=== PATIENT | female | born 1960 | race African-American/Black ===

== ENCOUNTER 2019-09-07 11:36 | Inpatient (IN) | payer OTHER ==
--- NOTE | 2019-09-07 12:25 | PDOC ---
History of Present Illness - General Chief Complaint: Shortness of Breath Stated Complaint: CHEST PAIN - History of Present Illness Initial Comments: The pt is a 59F w/ a history of cardiomyopathy, HTN, NIDDM who presents for evaluation of 2 days of shortness of breath. She states it started yesterday while at work, she noticed it while walking up a fight of stairs and had to stop. She also noted associated chest pressure. She does not typically have this happen with exertion. She notes chest pressure and SOB on exertion, that is non-positional. She endorses cough for the last two days. While laying at rest now, she does not have chest pressure/SOB Denies fevers/chills, abdominal pain, N/V/C/D, dysuria, edema, vision changes, ACUÑA, dizziness 09/07/19 12:48 Past History - Past Medical History Allergies/Adverse Reactions: Allergies Allergy/AdvReac Type Severity Reaction Status Date / Time No Known Allergies Allergy Verified 06/18/16 23:02 Home Medications: Ambulatory Orders Aspirin [ASA -] 81 mg PO DAILY 09/07/19 Carvedilol [Coreg -] 25 mg PO BID 09/07/19 Glimepiride [Amaryl -] 4 mg PO DAILY@0700 09/07/19 Losartan Potassium [Cozaar -] 25 mg PO DAILY 09/07/19 Metformin HCl [Glucophage] 500 mg PO BID 09/07/19 Sitagliptin Phosphate [Januvia] 100 mg PO DAILY 09/07/19 Spironolactone [Aldactone] 25 mg PO DAILY 09/07/19 Anemia: No Asthma: No Cancer: Yes (rt breast) Cardiac Disorders: Yes ("leaky valve") CVA: No COPD: No CHF: No Dementia: No Diabetes: Yes GI Disorders: No Disorders: No HTN: Yes Hypercholesterolemia: No Liver Disease: No Seizures: No Thyroid Disease: No - Surgical History Abdominal Surgery: No Appendectomy: No Cardiac Surgery: No Cholecystectomy: No Lung Surgery: No Neurologic Surgery: No Orthopedic Surgery: No - Psycho Social/Smoking Cessation Hx Smoking History: Never smoked Have you smoked in the past 12 months: No Number of Cigarettes Smoked Daily: 20 If you are a former smoker, when did you quit?: over 20 years Hx Alcohol Use: No Drug/Substance Use Hx: No Substance Use Type: None Hx Substance Use Treatment: No Review of Systems - Review of Systems Able to Perform ROS?: Yes Comments:: GENERAL/CONSTITUTIONAL: No fever or chills. No weakness HEAD, EYES, EARS, NOSE AND THROAT: No change in vision. No change in hearing. No sore throat CARDIOVASCULAR: +exertional chest pressure/KEYS RESPIRATORY: Denies hemoptysis GASTROINTESTINAL: No nausea, vomiting, diarrhea or constipation GENITOURINARY: No dysuria, frequency, or change in urination MUSCULOSKELETAL: No joint or muscle swelling or pain. No neck or back pain SKIN: No rash NEUROLOGIC: No headache, vertigo, loss of consciousness, or change in strength/ sensation ENDOCRINE: No increased thirst. No abnormal weight change HEMATOLOGIC/LYMPHATIC: No anemia, easy bleeding, or history of blood clots ALLERGIC/IMMUNOLOGIC: No hives or skin allergy 09/07/19 12:24 Is the patient limited Maldivian proficient: No *Physical Exam - Vital Signs Last Vital Signs Temp Pulse Resp BP Pulse Ox 98 F 105 H 20 144/90 95 09/07/19 11:46 09/07/19 11:46 09/07/19 11:46 09/07/19 11:46 09/07/19 11:46 - Physical Exam GENERAL: Awake, alert, and oriented to person/place/time, in no acute distress HEAD: No signs of trauma, normocephalic, atraumatic EYES: PERRLA, EOMI, sclera anicteric, conjunctiva clear ENT: Hearing grossly normal, nares patent, oropharynx clear without exudates. Moist mucosa LUNGS: Hypoxic on RA (resolved with 2L NC), diminished breath sounds at bases HEART: Regular rate and rhythm, normal S1 and S2, no murmurs appreciated, peripheral pulses normal and equal bilaterally ABDOMEN: Soft, nontender, normoactive bowel sounds. No guarding, no rebound EXTREMITIES: Normal inspection, Normal range of motion, no edema. No clubbing or cyanosis NEUROLOGICAL: Cranial nerves II through XII grossly intact. Normal speech, no focal sensorimotor deficits SKIN: Warm, Dry 09/07/19 12:25 ED Treatment Course - LABORATORY CBC & Chemistry Diagram: 09/07/19 12:55 09/07/19 12:55 - RADIOLOGY Radiograph Interpretation: CHEST X-RAY PORTABLE A single apical lordotic view reveals a large heart, prominent hilar markings but no sign of infiltrate or failure. There are sharp angles and intact bones and soft tissues. An acute process is not seen. Correlation recommended. 09/07/19 14:23 Medical Decision Making - Medical Decision Making The pt is a 59F w/ a history of cardiomyopathy, HTN, NIDDM who presents for evaluation of 2 days of exertional chest pressure and KEYS ED Course CMP, CBC, Trop I, BNP, D-dimer ECG CXR ECG w/ sinus tachy; HR 101; QTc 492; TWI I, II, aVL, V2-V6; no TIERNEY; abn ecg 09/07/19 13:02 No leukocytosis No anemia Lytes unremarkable No PUJA LFTs wnl Trop I neg BNP and D-dimer elated -Will obtain CTA chest to evaluate for PE -Will add coags to labs, Lab called and notified twice 09/07/19 14:22 CTA w/o evidence of PE Pt continues to be hypoxic and slightly tachycardic Pt given duo-neb w/o symptomatic improvement 09/07/19 17:39 Plan for admission for persistent hypoxia Pt on 2L NC w/o home O2 requirement Pt signed out to [facility] Admitting Discharge - Discharge Information Problems reviewed: Yes Clinical Impression/Diagnosis: KEYS (dyspnea on exertion), Chest pressure Condition: Good - Admission Yes - Follow up/Referral - Patient Discharge Instructions - Post Discharge Activity
[2019-09-07 13:36] LABS: BASO % 0.4 % (0-2.0); EOS % 0.5 % (0-4.5); HEMATOCRIT 37.5 % (32.4-45.2); HEMOGLOBIN 12.6 GM/dL (10.7-15.3); LYMPH % 21.4 % (8-40); MCH 28.8 pg (25.7-33.7); MCHC 33.7 g/dl (32.0-36.0); MEAN CELL VOLUME 85.4 fl (80-96); MEAN PLT VOLUME 9.3 fl (7.5-11.1); MONO % 4.9 % (3.8-10.2); NEUT % 72.8 % (42.8-82.8); PLATELET COUNT 278 K/MM3 (134-434); RBC 4.39 M/mm3 (3.60-5.2); RDW 14.1 % (11.6-15.6); WHITE BLOOD COUNT 7.4 K/mm3 (4.0-10.0)
[2019-09-07 14:17] LABS: ALBUMIN 3.4 g/dl (3.4-5.0); BILIRUBIN,TOTAL 0.7 mg/dL (0.2-1); BLOOD UREA NITROGEN 8.2 mg/dL (7-18); CALCIUM 8.5 mg/dL (8.5-10.1); CREATININE 0.8 mg/dL (0.55-1.3); POTASSIUM 4.4 mmol/L (3.5-5.1); TOT PROT 7.9 g/dl (6.4-8.2)
[2019-09-07 14:25] LABS: INR 1.11 (0.83-1.09); PROTHROMBIN TIME (PATIENT) 13.1 SEC (9.7-13.0)
--- NOTE | 2019-09-07 15:00 | PDOC ---
Documentation entered by Merary Wright SCRIBE, acting as scribe for Guy Marie MD. Guy Marie MD: This documentation has been prepared by the denise, Merary Wright SCRIBE, under my direction and personally reviewed by me in its entirety. I confirm that the documentation accurately reflects all work, treatment, procedures, and medical decision making performed by me. Attending Attestation - Resident Resident Name: Valente Hill - ED Attending Attestation I have performed the following: I have examined & evaluated the patient, The case was reviewed & discussed with the resident, I agree w/resident's findings & plan, Exceptions are as noted - HPI HPI: 09/07/19 13:30 The patient is a 59 year old female with a past medical history of cardiomyopathy, HTN, and non insulin dependent diabetes here today for evaluation of shortness of breath. The patient reports that her shortness of breath began 2 days ago and states that her shortness of breath is worse on exertion. She also notes associated chest pressure and cough. She states that her symptoms are better while lying down. Patient denies headache, lightheadedness. Denies fever, chills. Denies nausea, vomiting, diarrhea, abdominal pain. Denies lower extremity edema. - Physicial Exam PE: 09/07/19 13:58 Exam: Vitals: Triage Vital signs reviewed General Appearance: no acute distress, well nourished well developed, Nose: +Cough Nares patent bilaterally;no nasal congestion Throat: Posterior oropharynx without erythema, mucous membranes moist, Neck: Supple;No Nuchal rigidity Chest Wall: Nontender Cardiac: Regular rate and rhythm, no murmurs, no rubs, no gallops, Lungs: Clear to auscultation bilateral, good air movement bilaterally, Abdomen: Soft, nondistended, normal bowel sounds, nontender to palpation Rectal: Exam deferred Extremities: Full range of motion to all extremities, no cyanosis, clubbing, or edema - Medical Decision Making 09/07/19 18:15 59 years old with tachycardia hypoxia history of cardiomyopathy hypertension CTA negative for PE likely CHF exacerbation given hypoxia tachycardia and vital sign abnormalities will admit to medicine for further management. Heart Score/ECG Review - ECG Impressions Comment:: 09/07/19 18:16 Second EKG performed at 1218 demonstrates sinus tachycardia 101 bpm with diffuse T wave inversions inferior septally and laterally incomplete right bundle branch block Interpreted by me
[2019-09-07] MEDS ORDERED: ALBUTEROL SO4 2.5/IPRATROPIUM 0.5 INH SOL 3 ML VIAL.NEB. NEB ONE (15:51)
[2019-09-07] MEDS ORDERED: FUROSEMIDE 40 MG/4 ML INJECTABLE VIAL IVPUSH ONE (18:53)
--- NOTE | 2019-09-07 19:14 | HP ---
CHIEF COMPLAINT: shortness of breath PCP:Dr. Iraheta HISTORY OF PRESENT ILLNESS: Patient is a 59 year old female with past medical history of HFrEF, HTN, NIDDM, breast cancer (diagnosed in 2010) s/p lumpectomy with chemo and radiation in Aug 2011, who presented to the ED due to worsening shortness of breath for 2 days. PAtient reported SOB started suddenly yesterday while at work, and noted it to be worse when she was walking around. She also reports left sided chest pressure, nonradiating, constant, nonpositional, with no aggravating or alleviating factors. Patient also endorses nonproductive cough that started 2 days ago but denies any fevers, chills, headache, dizziness, abdominal pain, diarrhea, urinary symptoms. Upon arrival at the ED, patient was noted to be hypoxic at the 80s, and was subsequently placed on nasal cannula with relief of dyspnea. Of note, patient had similar symptoms during her previous admission in 2015 where she had dyspnea on exertion. ER course was notable for: (1)Chest CTA: no evidence of pulmonary embolus within the main pulmonary artery and its proximal branches, bilaterally. Bilateral mainly central lung groundglass opacity/haziness suggestive of pulmonary venous congestion vs infiltrates. Small bilateral pleural effusion. Mild cardiomegaly without gross evidence of pericardial effusion. (2)BNP 946.3 (3) Recent Travel:denies PAST MEDICAL HISTORY: HFrEF HTN NIDDM breast cancer (diagnosed in 2010) s/p lumpectomy with chemo and radiation in Aug 2011 PAST SURGICAL HISTORY: Lumpectomy of R breast Social History: Smoking:former smoker that quit in 1991, but had smoke 1/2 to 1 pack per day for around 15-20 years. Alcohol:denies Drugs: denies Works as a middle school pe teacher Allergies No Known Allergies Allergy (Verified 06/18/16 23:02) HOME MEDICATIONS: Home Medications Medication Instructions Recorded Aspirin [ASA -] 81 mg PO DAILY 09/07/19 Carvedilol [Coreg -] 25 mg PO BID 09/07/19 Glimepiride [Amaryl -] 4 mg PO DAILY@0700 09/07/19 Losartan Potassium [Cozaar -] 25 mg PO DAILY 09/07/19 Metformin HCl [Glucophage] 500 mg PO BID 09/07/19 Sitagliptin Phosphate [Januvia] 100 mg PO DAILY 09/07/19 Spironolactone [Aldactone] 25 mg PO DAILY 09/07/19 REVIEW OF SYSTEMS CONSTITUTIONAL: Absent: fever, chills, diaphoresis, generalized weakness, malaise, loss of appetite, weight change HEENT: Absent: rhinorrhea, nasal congestion, throat pain, throat swelling, difficulty swallowing, mouth swelling, ear pain, eye pain, visual changes CARDIOVASCULAR: chest pain Absent: syncope, palpitations, irregular heart rate, lightheadedness, peripheral edema RESPIRATORY: cough, shortness of breath, dyspnea with exertion Absent:orthopnea, wheezing, stridor, hemoptysis GASTROINTESTINAL: Absent: abdominal pain, abdominal distension, nausea, vomiting, diarrhea, constipation, melena, hematochezia GENITOURINARY: Absent: dysuria, frequency, urgency, hesitancy, hematuria, flank pain, genital pain MUSCULOSKELETAL: Absent: myalgia, arthralgia, joint swelling, back pain, neck pain SKIN: Absent: rash, itching, pallor HEMATOLOGIC/IMMUNOLOGIC: Absent: easy bleeding, easy bruising, lymphadenopathy, frequent infections ENDOCRINE: Absent: unexplained weight gain, unexplained weight loss, heat intolerance, cold intolerance NEUROLOGIC: Absent: headache, focal weakness or paresthesias, dizziness, unsteady gait, seizure, mental status changes, bladder or bowel incontinence PSYCHIATRIC: Absent: anxiety, depression, suicidal or homicidal ideation, hallucinations. PHYSICAL EXAMINATION Vital Signs - 24 hr 09/07/19 09/07/19 09/07/19 11:46 12:27 14:00 Temperature 98 F Pulse Rate 105 H 101 H Pulse Rate [ 101 H Left Radial] Respiratory 20 20 Rate Blood Pressure 144/90 Blood Pressure 133/80 [Left] O2 Sat by Pulse 95 89 L 96 Oximetry (%) 09/07/19 18:08 Temperature 99 F Pulse Rate Pulse Rate [ 102 H Left Radial] Respiratory 20 Rate Blood Pressure Blood Pressure 136/75 [Left] O2 Sat by Pulse 95 Oximetry (%) GENERAL: Awake, alert, and fully oriented, on 2L NC HEAD: Normal with no signs of trauma. EYES: PERRLA, EOMI, sclera anicteric, conjunctiva clear. EARS, NOSE, THROAT: Moist mucous membranes. NECK: Normal range of motion, supple LUNGS: Decreased breath sounds on bilateral bases. HEART: Regular rate and rhythm, normal S1 and S2 without murmur, rub or gallop. ABDOMEN: Soft, nontender, not distended, normoactive bowel sounds. MUSCULOSKELETAL: Normal range of motion at all joints. No bony deformities or tenderness. No CVA tenderness. UPPER EXTREMITIES: 2+ pulses, warm, well-perfused. No peripheral edema. LOWER EXTREMITIES: 2+ pulses, warm, well-perfused. No peripheral edema. NEUROLOGICAL: Cranial nerves II-XII intact. Normal speech. Normal gait. PSYCHIATRIC: Cooperative. Good eye contact. Appropriate mood and affect. SKIN: Warm, dry, normal turgor. Laboratory Results - last 24 hr 09/07/19 09/07/19 09/07/19 12:55 12:55 12:55 WBC 7.4 RBC 4.39 Hgb 12.6 Hct 37.5 MCV 85.4 MCH 28.8 MCHC 33.7 RDW 14.1 Plt Count 278 MPV 9.3 D Absolute Neuts (auto) 5.4 Neutrophils % 72.8 D Lymphocytes % 21.4 D Monocytes % 4.9 Eosinophils % 0.5 Basophils % 0.4 Nucleated RBC % 0 PT with INR INR PTT (Actin FS) D-Dimer Sodium 135 L Potassium 4.4 Chloride 103 Carbon Dioxide 23 Anion Gap 9 BUN 8.2 Creatinine 0.8 Est GFR (CKD-EPI)AfAm 93.53 Est GFR (CKD-EPI)NonAf 80.70 Random Glucose 317 H Calcium 8.5 Total Bilirubin 0.7 AST 41 H ALT 40 Alkaline Phosphatase 152 H Troponin I 0.05 B-Natriuretic Peptide 946.3 H Total Protein 7.9 Albumin 3.4 09/07/19 09/07/19 09/07/19 12:55 13:25 13:25 WBC RBC Hgb Hct MCV MCH MCHC RDW Plt Count MPV Absolute Neuts (auto) Neutrophils % Lymphocytes % Monocytes % Eosinophils % Basophils % Nucleated RBC % PT with INR 13.10 H INR 1.11 H PTT (Actin FS) 29.8 D-Dimer 759 H Sodium Potassium Chloride Carbon Dioxide Anion Gap BUN Creatinine Est GFR (CKD-EPI)AfAm Est GFR (CKD-EPI)NonAf Random Glucose Calcium Total Bilirubin AST ALT Alkaline Phosphatase Troponin I B-Natriuretic Peptide Total Protein Albumin ASSESSMENT/PLAN: Patient is a 59 year old female with past medical history of HFrEF, HTN, NIDDM, breast cancer (diagnosed in 2010) s/p lumpectomy with chemo and radiation in Aug 2011, who presented to the ED due to worsening shortness of breath for 2 days. #SOB, chest pressure likely 2/2 CHF exacerbation, r/o ACS -duoneb given at the ED, provided minimal relief -will give Iv Lasix 40mg once -D-dimer elevated, CTA negative for PE -First trop negative, will repeat trop x2 -will order echo -continue home medications -Cardiology (DR. Malik) consulted. #HTN -Continue home medications #NIDDM -Will hold home medications -Insulin sliding scale implemented -BGM ACHS -A1c #FEN -Not on any standing fluids -Electrolytes wnl, routine bmp monitoring -Sodium restricted/diabetic diet #Prophylaxis -Lovenox 40mg sq daily #Disposition -full code -admit to tele Visit type - Emergency Visit Emergency Visit: Yes ED Registration Date: 09/07/19 Care time: The patient presented to the Emergency Department on the above date and was hospitalized for further evaluation of their emergent condition. - New Patient This patient is new to me today: Yes Date on this admission: 09/07/19 - Critical Care Critical Care patient: No ATTENDING PHYSICIAN STATEMENT I saw and evaluated the patient. I reviewed the resident's note and discussed the case with the resident. I agree with the resident's findings and plan as documented. SUBJECTIVE: OBJECTIVE: ASSESSMENT AND PLAN:
[2019-09-07] MEDS ORDERED: FUROSEMIDE 40 MG/4 ML INJECTABLE VIAL ONE (19:19)
--- NOTE | 2019-09-07 23:19 | PN ---
Teaching Attending Note Name of Resident: Layne Boucher ATTENDING PHYSICIAN STATEMENT I saw and evaluated the patient. I reviewed the resident's note and discussed the case with the resident. I agree with the resident's findings and plan as documented. 59 y.o. AA Female h/o HFrEF, HTN, NIDDM, breast cancer (diagnosed in 2010) s/p lumpectomy with chemo and radiation in Aug 2011, who presented to the ED due to worsening shortness of breath for 2 days. Patient endorses having gone up 3-4 flights of stairs and suddenly felt SOB a/w some dizziness and weakness. Patient endorses dry cough, denies fever/chills/sputum production/LOC/chest pain /abdominal pain, bleeding from any source. On ED presentation pt. found to be hypoxic on RA was placed on NC O2 w/ improvement of sats. PE GA AAOx3, speaking in full sentences, NAD HEENT NC/AT, EOMI, MMM, neck supple, no JVD Chest good air entry b/l, faint bibasilar crackles CVS S1, S2+, RRR Abd Soft, NT, BS+, no guarding Ext No LE edema, no calf tenderness Vital Signs - 24 hr 09/07/19 09/07/19 09/07/19 11:46 12:27 14:00 Temperature 98 F Pulse Rate 105 H 101 H Pulse Rate [ 101 H Left Radial] Respiratory 20 20 Rate Blood Pressure 144/90 Blood Pressure 133/80 [Left] O2 Sat by Pulse 95 89 L 96 Oximetry (%) 09/07/19 18:08 Temperature 99 F Pulse Rate Pulse Rate [ 102 H Left Radial] Respiratory 20 Rate Blood Pressure Blood Pressure 136/75 [Left] O2 Sat by Pulse 95 Oximetry (%) Laboratory Results - last 24 hr 09/07/19 09/07/19 09/07/19 12:55 12:55 12:55 WBC 7.4 RBC 4.39 Hgb 12.6 Hct 37.5 MCV 85.4 MCH 28.8 MCHC 33.7 RDW 14.1 Plt Count 278 MPV 9.3 D Absolute Neuts (auto) 5.4 Neutrophils % 72.8 D Lymphocytes % 21.4 D Monocytes % 4.9 Eosinophils % 0.5 Basophils % 0.4 Nucleated RBC % 0 PT with INR INR PTT (Actin FS) D-Dimer Sodium 135 L Potassium 4.4 Chloride 103 Carbon Dioxide 23 Anion Gap 9 BUN 8.2 Creatinine 0.8 Est GFR (CKD-EPI)AfAm 93.53 Est GFR (CKD-EPI)NonAf 80.70 Random Glucose 317 H Calcium 8.5 Total Bilirubin 0.7 AST 41 H ALT 40 Alkaline Phosphatase 152 H Creatine Kinase Troponin I 0.05 B-Natriuretic Peptide 946.3 H Total Protein 7.9 Albumin 3.4 09/07/19 09/07/19 09/07/19 12:55 13:25 13:25 WBC RBC Hgb Hct MCV MCH MCHC RDW Plt Count MPV Absolute Neuts (auto) Neutrophils % Lymphocytes % Monocytes % Eosinophils % Basophils % Nucleated RBC % PT with INR 13.10 H INR 1.11 H PTT (Actin FS) 29.8 D-Dimer 759 H Sodium Potassium Chloride Carbon Dioxide Anion Gap BUN Creatinine Est GFR (CKD-EPI)AfAm Est GFR (CKD-EPI)NonAf Random Glucose Calcium Total Bilirubin AST ALT Alkaline Phosphatase Creatine Kinase Troponin I B-Natriuretic Peptide Total Protein Albumin 09/07/19 20:52 WBC RBC Hgb Hct MCV MCH MCHC RDW Plt Count MPV Absolute Neuts (auto) Neutrophils % Lymphocytes % Monocytes % Eosinophils % Basophils % Nucleated RBC % PT with INR INR PTT (Actin FS) D-Dimer Sodium Potassium Chloride Carbon Dioxide Anion Gap BUN Creatinine Est GFR (CKD-EPI)AfAm Est GFR (CKD-EPI)NonAf Random Glucose Calcium Total Bilirubin AST ALT Alkaline Phosphatase Creatine Kinase 63 Troponin I 0.05 B-Natriuretic Peptide Total Protein Albumin Home Medications Medication Instructions Recorded Aspirin [ASA -] 81 mg PO DAILY 09/07/19 Carvedilol [Coreg -] 25 mg PO BID 09/07/19 Glimepiride [Amaryl -] 4 mg PO DAILY@0700 09/07/19 Losartan Potassium [Cozaar -] 25 mg PO DAILY 09/07/19 Metformin HCl [Glucophage] 500 mg PO BID 09/07/19 Sitagliptin Phosphate [Januvia] 100 mg PO DAILY 09/07/19 Spironolactone [Aldactone] 25 mg PO DAILY 09/07/19 Current Medications Generic Name Dose Route Start Last Admin Trade Name Freq PRN Reason Stop Dose Admin Aspirin 81 mg 09/08/19 10:00 Asa - PO DAILY [facility] Carvedilol 25 mg 09/07/19 22:00 Coreg - PO BID [facility] Enoxaparin Sodium 40 mg 09/08/19 10:00 Lovenox - SQ DAILY [facility] Insulin Aspart 1 vial 09/07/19 22:00 Novolog Vial Sliding Scale - SQ ACHS [facility] Protocol Losartan Potassium 25 mg 09/08/19 10:00 Cozaar - PO DAILY [facility] Spironolactone 25 mg 09/08/19 10:00 Aldactone - PO DAILY [facility] 59 F h/o dilated cardiomyopathy with severely reduced EF, HTN, breast ca s/p chemo/RT, presents with acute episode of SOB on exertion. Acute episode of SOB on exertion Likely 2/2 flash pulmonary edema due to CHFE, severely reduced EF on top of increased cardiac demand resulting in fluid back flow into the lungs Give 1 dose of IV Lasix and reassess SOB symptoms Restart HF medications with close monitoring of fluid status and electrolytes Cardiology consult (patient will likely need an ICD) HTN -Continue home medications NIDDM ISS, basal insulin as needed A1c, lipids, TSH panels Also obtain Flu/RSV/legionella DVT ppx: -Lovenox 40mg sq daily Admit to telemetry
[2019-09-08] MEDS ORDERED: CARVEDILOL 12.5 MG TABLET (FP) ONE (00:16)
[2019-09-08] MEDS: INSULIN SLIDING SCALE (NOVOLOG) 1 VIAL SQ SCH ×5 (00:49→22:08)
[2019-09-08] MEDS: CARVEDILOL 25 MG TABLET (FP) PO SCH ×3 (00:49→22:08)
[2019-09-08 07:31] LABS: BASO % 0.4 % (0-2.0); EOS % 0.7 % (0-4.5); HEMATOCRIT 33.5 % (32.4-45.2); HEMOGLOBIN 11.4 GM/dL (10.7-15.3); LYMPH % 30.8 % (8-40); MCH 28.6 pg (25.7-33.7); MEAN CELL VOLUME 83.9 fl (80-96); MEAN PLT VOLUME 8.3 fl (7.5-11.1); NEUT % 60.1 % (42.8-82.8); PLATELET COUNT 251 K/MM3 (134-434); RBC 3.99 M/mm3 (3.60-5.2); RDW 13.8 % (11.6-15.6); WHITE BLOOD COUNT 6.4 K/mm3 (4.0-10.0)
--- NOTE | 2019-09-08 07:40 | PN ---
Progress Note, Physician Chief Complaint: Stated SOB is better on O2. Not able to ambulate to bathroom off O2 without dyspnea. Was on HF meds (lisinipril in past & stopped d/t cough) History of Present Illness: Patient is a 59 year old female with past medical history of HFrEF, HTN, NIDDM, breast cancer (diagnosed in 2010) s/p lumpectomy with chemo and radiation in Aug 2011, who presented to the ED due to worsening shortness of breath for 2 days. - Current Medication List Current Medications: Active Medications Aspirin (Asa -) 81 mg PO DAILY [facility] Carvedilol (Coreg -) 25 mg PO BID [facility] Last Admin: 09/08/19 00:49 Dose: 25 mg Enoxaparin Sodium (Lovenox -) 40 mg SQ DAILY [facility] Insulin Aspart (Novolog Vial Sliding Scale -) 1 vial SQ [facility]; Protocol Last Admin: 09/08/19 00:49 Dose: 4 unit Losartan Potassium (Cozaar -) 25 mg PO DAILY [facility] Spironolactone (Aldactone -) 25 mg PO DAILY [facility] - Objective Vital Signs: Vital Signs Temperature 98.2 F 09/08/19 06:00 Pulse Rate 91 H 09/08/19 06:00 Respiratory Rate 18 09/08/19 06:00 Blood Pressure 110/66 09/08/19 06:00 O2 Sat by Pulse Oximetry (%) 94 L 09/08/19 00:45 Constitutional: Yes: Well Nourished, No Distress, Calm Eyes: Yes: WNL, Conjunctiva Clear HENT: Yes: WNL, Atraumatic, Normocephalic Neck: Yes: WNL, Supple, Trachea Midline Cardiovascular: Yes: WNL, Regular Rate and Rhythm Respiratory: Yes: Regular, CTA Bilaterally, Diminished (at bases), On Nasal O2, SOB on Exertion Gastrointestinal: Yes: WNL, Normal Bowel Sounds Genitourinary: Yes: WNL Breast(s): Yes: WNL Musculoskeletal: Yes: WNL Extremities: Yes: WNL Edema: No Peripheral Pulses WNL: Yes Peripheral Pulses: Left Radial: 2+, Right Radial: 2+, Left Doralis Pedis: 2+, Right Dorsalis Pedis: 2+, Left Femoral: 2+, Right Femoral: 2+ Integumentary: Yes: WNL Neurological: Yes: WNL, Alert, Oriented ...Motor Strength: WNL Psychiatric: Yes: WNL Labs: INR, PTT INR 1.11 (0.83-1.09) H 09/07/19 13:25 - ....Imaging Cat Scan: Report Reviewed (Chest CTA: no evidence of pulmonary embolus within the main pulmonary artery and its proximal branches, bilaterally. Bilateral mainly central lung groundglass opacity/haziness suggestive of pulmonary venous congestion vs infiltrates. Small bilateral pleural effusion. Mild cardiomegaly without gross evidence of pericardial effusion.) Other: Report Reviewed (TTE:severe global hypokinesis, mod TR, severe MR) Problem List - Problems (1) Diabetes mellitus Assessment/Plan: HgbA1c 13.7 BGM 300 on admission, remains in 200-300s questionable med noncomplaince BGM AC/HS with novolog sliding scale will start levemir q hs and evaluate tomorrow diabetic diet Code(s): E11.9 - TYPE 2 DIABETES MELLITUS WITHOUT COMPLICATIONS (2) Breast cancer Assessment/Plan: s/p lumpectomy with chemo and RT Code(s): C50.919 - MALIGNANT NEOPLASM OF UNSP SITE OF UNSPECIFIED FEMALE BREAST (3) SOB (shortness of breath) Assessment/Plan: supplemental O2 to maintain SPO2 >90% Decreased EF one dose of lasix in ED with improvement start lasix 40mg q12 c/w aldactone, monitor K Code(s): R06.02 - SHORTNESS OF BREATH (4) Prophylactic measure Assessment/Plan: FEN Fluids: adequate PO intake, no additional IVF Electrolytes: monitor & replete as needed Nutrition: low Na diet DVT moderate risk sq lovenox Dispo Maintain as inpatient on tele full code discharge planning Code(s): Z29.9 - ENCOUNTER FOR PROPHYLACTIC MEASURES, UNSPECIFIED (5) HTN (hypertension) Assessment/Plan: norotensive c/w losartan Code(s): I10 - ESSENTIAL (PRIMARY) HYPERTENSION (6) CHF exacerbation Assessment/Plan: acute on chronic HF reduced EF 30%, med non-complaince c/w lasix daily weights Strict I/Os did not tolerate lisinipril in past d/t cough cardiology consultation appreciated will evaluate pt for Life vest (spoke to Saul avalos and will see tomorrow) Code(s): I50.9 - HEART FAILURE, UNSPECIFIED (7) Hypomagnesemia Assessment/Plan: Mg 1.5 2g Mg IV continue to monitor Code(s): E83.42 - HYPOMAGNESEMIA Visit type - Emergency Visit Emergency Visit: Yes ED Registration Date: 09/07/19 Care time: The patient presented to the Emergency Department on the above date and was hospitalized for further evaluation of their emergent condition. - New Patient This patient is new to me today: Yes Date on this admission: 09/08/19 - Critical Care Critical Care patient: No - Discharge Referral Referred to [facility] Med P.C.: No
[2019-09-08 08:01] LABS: ALBUMIN 3.1 g/dl (3.4-5.0); BLOOD UREA NITROGEN 9.8 mg/dL (7-18); CALCIUM 8.6 mg/dL (8.5-10.1); CREATININE 0.8 mg/dL (0.55-1.3); MAGNESIUM 1.5 mg/dL (1.8-2.4); PHOSPHOROUS 4.2 mg/dL (2.5-4.9); POTASSIUM 3.6 mmol/L (3.5-5.1); TOT PROT 7.1 g/dl (6.4-8.2)
[2019-09-08] MEDS ORDERED: MAGNESIUM SULF 50% (8.12 MEQ/2 ML-1 GM VIAL) IVPB ONE (08:27)
--- NOTE | 2019-09-08 10:44 | EKG ---
Test Reason : Blood Pressure : / mmHG Vent. Rate : 101 BPM Atrial Rate : 101 BPM P-R Int : 148 ms QRS Dur : 098 ms QT Int : 380 ms P-R-T Axes : 059 030 105 degrees QTc Int : 492 ms SINUS TACHYCARDIA MINIMAL VOLTAGE CRITERIA FOR LVH, MAY BE NORMAL VARIANT T WAVE ABNORMALITY, CONSIDER ANTEROLATERAL ISCHEMIA ABNORMAL ECG WHEN COMPARED WITH ECG OF 22-JUN-2016 11:51, INVERTED T WAVES HAVE REPLACED NONSPECIFIC T WAVE ABNORMALITY IN LATERAL LEADS Confirmed by Klever Guzmán MD ([id number]) on 09/08/2019 10:43:44 AM Referred By: Confirmed By:Klever Guzmán MD
[2019-09-08] MEDS: ENOXAPARIN NA (PORCINE) 40 MG/0.4 ML DISP.SYRIN SQ SCH (11:00)
[2019-09-08] MEDS: ASPIRIN 81 MG CHEWABLE TABLETS PO SCH (11:00)
[2019-09-08] MEDS: SPIRONOLACTONE 25 MG TABLET (FP) PO SCH (11:00)
[2019-09-08] MEDS: LOSARTAN POTASSIUM 25 MG TABLET PO SCH (11:00)
[2019-09-08] MEDS ORDERED: MAGNESIUM 1GM/D5W - 2 GM/200 ML IVPB IVPB ONE (11:13)
--- NOTE | 2019-09-08 11:55 | ECHO ---
Version: 1 Name: SADIA STOCK Exam: Adult Echocardiogram Study Date: 09/08/2019, 8:59 AM Age: 59 Years MMode/2D Measurements & Calculations IVSd: 0.93 cm LVIDs: 4.2 cm LVIDd: 5.9 cm LVPWd: 1.08 cm ACS: 1.72 cm Ao root diam: 2.31 cm LVOT diam: 1.90 cm LA dimension: 5.2 cm Doppler Measurements & Calculations MV E max adan: 130.3 cm/sec Med E/e': 26.7 MV A max adan: 82.4 cm/sec Med Peak E' Adan: 4.9 cm/sec MV E/A: 1.58 Lat E/e': 29.7 Lat Peak E' Adan: 4.4 cm/sec MR max P.3 mmHg Ao max P.9 mmHg RADHA(I,D): 1.46 cm Ao mean P.5 mmHg LV V1 mean: 46.5 cm/sec Ao V2 max: 140.6 cm/sec LV V1 mean P.95 mmHg TR max adan: 230.6 cm/sec TR max P.8 mmHg Procedure A complete two-dimensional transthoracic echocardiogram was performed (2D, M-mode, Doppler and color flow Doppler). Left Ventricle The left ventricle is mildly dilated. There is normal left ventricular wall thickness. Left ventricu lar systolic function is severely reduced. Ejection Fraction = 30%. E/A reversal consistent with but not diagnostic of poor LV compliance. There is severe global hypokinesis of the left ventricle. Right Ventricle The right ventricle is normal in size and function. Atria The left atrium is severely dilated. Right atrial size is normal. Mitral Valve There is mild mitral valve thickening. There is mild to moderate mitral regurgitation. Tricuspid Valve The tricuspid valve is normal in structure and function. There is mild tricuspid regurgitation. Righ t ventricular systolic pressure is 35 mmhg. Aortic Valve There is mild aortic valve thickening. Pulmonic Valve The pulmonic valve is not well visualized. Great Vessels The aortic root is normal size. Pericardium/Pleura There is no pericardial effusion. There is no pleural effusion. Summary Statements The left ventricle is mildly dilated. Left ventricular systolic function is severely reduced. There is severe global hypokinesis of the left ventricle. Ejection Fraction = 30%. The left atrium is severely dilated. There is mild mitral valve thickening. There is mild to moderate mitral regurgitation. There is mild tricuspid regurgitation. Right ventricular systolic pressure is 35 mmhg. There is mild aortic valve thickening. MD Klever Guzmán 09/08/2019, 11:54 AM Ordering Physician: JUNE TRUONG Referring Physician: JUNE TRUONG Performed By: Azeb Franco
[2019-09-08] MEDS: FUROSEMIDE 40 MG TABLET (FP) PO SCH ×3 (13:10→18:19)
[2019-09-08] MEDS ORDERED: FUROSEMIDE 40 MG TABLET (FP) ONE ×2 (13:17→18:06)
--- NOTE | 2019-09-08 14:20 | CON.CARD ---
Consult Consult Specialty:: Cardiology - History of Present Illness History of Present Illness: Patient is a 59 year old female with past medical history of HFrEF, HTN, NIDDM, breast cancer (diagnosed in 2010) s/p lumpectomy with chemo and radiation in Aug 2011, who presented to the ED due to worsening shortness of breath for 2 days. PAtient reported SOB started suddenly yesterday while at work, and noted it to be worse when she was walking around. She also reports left sided chest pressure, nonradiating, constant, nonpositional, with no aggravating or alleviating factors. Patient also endorses nonproductive cough that started 2 days ago but denies any fevers, chills, headache, dizziness, abdominal pain, diarrhea, urinary symptoms. Upon arrival at the ED, patient was noted to be hypoxic at the 80s, and was subsequently placed on nasal cannula with relief of dyspnea. Of note, patient had similar symptoms during her previous admission in 2015 where she had dyspnea on exertion. ER course was notable for: (1)Chest CTA: no evidence of pulmonary embolus within the main pulmonary artery and its proximal branches, bilaterally. Bilateral mainly central lung groundglass opacity/haziness suggestive of pulmonary venous congestion vs infiltrates. Small bilateral pleural effusion. Mild cardiomegaly without gross evidence of pericardial effusion. (2)BNP 946.3 (3) - History Source History Provided By: Patient, Medical Record - Past Medical History Cardio/Vascular: Yes: CHF, HTN, Other ("Enlarged heart" ever since her child was born.) Pulmonary: Yes: Asthma Endocrine: Yes: Diabetes Mellitus (controlled with metformin previously. Noncompliant currently) - Past Surgical History Past Surgical History: Yes: (2 times) - Alcohol/Substance Use Hx Alcohol Use: No - Smoking History Smoking history: Never smoked Have you smoked in the past 12 months: No Aproximately how many cigarettes per day: 20 If you are a former smoker, when did you quit?: over 20 years - Social History ADL: Independent History of Recent Travel: No Home Medications - Allergies Allergies/Adverse Reactions: Allergies Allergy/AdvReac Type Severity Reaction Status Date / Time No Known Allergies Allergy Verified 06/18/16 23:02 - Home Medications Home Medications: Ambulatory Orders Aspirin [ASA -] 81 mg PO DAILY 09/07/19 Carvedilol [Coreg -] 25 mg PO BID 09/07/19 Glimepiride [Amaryl -] 4 mg PO DAILY@0700 09/07/19 Losartan Potassium [Cozaar -] 25 mg PO DAILY 09/07/19 Metformin HCl [Glucophage] 500 mg PO BID 09/07/19 Sitagliptin Phosphate [Januvia] 100 mg PO DAILY 09/07/19 Spironolactone [Aldactone] 25 mg PO DAILY 09/07/19 Review of Systems - Review of Systems Constitutional: reports: No Symptoms Eyes: reports: No Symptoms HENT: reports: No Symptoms Neck: reports: No Symptoms Cardiovascular: reports: Shortness of Breath Respiratory: reports: SOB, SOB on Exertion Gastrointestinal: reports: No Symptoms Genitourinary: reports: No Symptoms Breasts: reports: No Symptoms Reported Musculoskeletal: reports: No Symptoms Integumentary: reports: No Symptoms Neurological: reports: No Symptoms Endocrine: reports: No Symptoms Hematology/Lymphatic: reports: No Symptoms Psychiatric: reports: No Symptoms Vital Signs: Vital Signs Temperature 97.8 F 09/08/19 13:14 Pulse Rate 89 09/08/19 13:14 Respiratory Rate 18 09/08/19 13:14 Blood Pressure 139/62 09/08/19 13:14 O2 Sat by Pulse Oximetry (%) 99 09/08/19 13:14 Constitutional: Yes: Well Nourished, No Distress, Calm Eyes: Yes: WNL, Conjunctiva Clear, EOM Intact HENT: Yes: WNL, Atraumatic, Normocephalic Neck: Yes: WNL, Supple, Trachea Midline Respiratory: Yes: WNL, Regular, CTA Bilaterally Gastrointestinal: Yes: WNL, Normal Bowel Sounds Renal/: Yes: WNL Cardiovascular: Yes: WNL, Regular Rate and Rhythm Heart Sounds: Yes: S1, S2 Musculoskeletal: Yes: WNL Extremities: Yes: WNL Integumentary: Yes: WNL Neurological: Yes: WNL, Alert, Oriented ...Motor Strength: WNL Psychiatric: Yes: WNL, Alert, Oriented - Other Data Labs, Other Data: CBC, BMP 09/08/19 06:40 09/08/19 06:40 INR, PTT INR 1.11 (0.83-1.09) H 09/07/19 13:25 Troponin, BNP 09/07/19 09/07/19 09/08/19 12:55 20:52 06:40 Troponin I 0.05 0.05 0.05 Troponin, BNP 09/07/19 09/07/19 09/08/19 12:55 20:52 06:40 Troponin I 0.05 0.05 0.05 Imaging - Results Chest X-ray: Image Reviewed (no i/e) EKG: Image Reviewed (s tach lvh repolarization abnormalities ?ant wall ischemia) Problem List - Problems (1) Breast cancer Code(s): C50.919 - MALIGNANT NEOPLASM OF UNSP SITE OF UNSPECIFIED FEMALE BREAST (2) Chest pressure Code(s): R07.89 - OTHER CHEST PAIN (3) KEYS (dyspnea on exertion) Code(s): R06.09 - OTHER FORMS OF DYSPNEA (4) Diabetes mellitus Code(s): E11.9 - TYPE 2 DIABETES MELLITUS WITHOUT COMPLICATIONS (5) Prophylactic measure Code(s): Z29.9 - ENCOUNTER FOR PROPHYLACTIC MEASURES, UNSPECIFIED (6) SOB (shortness of breath) Code(s): R06.02 - SHORTNESS OF BREATH (7) CHF exacerbation Code(s): I50.9 - HEART FAILURE, UNSPECIFIED (8) Cardiomegaly Code(s): I51.7 - CARDIOMEGALY (9) Dilated cardiomyopathy Code(s): I42.0 - DILATED CARDIOMYOPATHY (10) Dyspnea Code(s): R06.00 - DYSPNEA, UNSPECIFIED Qualifiers: Dyspnea type: shortness of breath Qualified Code(s): R06.02 - Shortness of breath (11) HTN (hypertension) Code(s): I10 - ESSENTIAL (PRIMARY) HYPERTENSION (12) Hyperglycemia Code(s): R73.9 - HYPERGLYCEMIA, UNSPECIFIED (13) Poorly controlled diabetes mellitus Code(s): E11.65 - TYPE 2 DIABETES MELLITUS WITH HYPERGLYCEMIA Assessment/Plan Imp; DM HgA1C 13.7 CMP ? non-ischemic [facility] 2016 htn hlp noncompliance chf systolic acute on chronic ECHO EF 30% Plan; restart home meds diuresis telemetry AICD if EF does not improve while compliant with medical rx [facility] in the meantime DVT plx
[2019-09-08] MEDS: INSULIN (LEVEMIR) 100 UNITS/ML UNITS SQ SCH (22:30)
[2019-09-09] MEDS ORDERED: FUROSEMIDE 40 MG TABLET (FP) ONE (05:54)
[2019-09-09] MEDS: FUROSEMIDE 40 MG TABLET (FP) PO SCH ×2 (06:23→15:24)
[2019-09-09] MEDS: INSULIN SLIDING SCALE (NOVOLOG) 1 VIAL SQ SCH ×4 (06:57→21:55)
--- NOTE | 2019-09-09 08:40 | PN ---
Progress Note, Physician Chief Complaint: SOB resolving. awaiting approval for life vest. History of Present Illness: Patient is a 59 year old female with past medical history of HFrEF, HTN, NIDDM, breast cancer (diagnosed in 2010) s/p lumpectomy with chemo and radiation in Aug 2011, who presented to the ED due to worsening shortness of breath for 2 days. - Current Medication List Current Medications: Active Medications Aspirin (Asa -) 81 mg PO DAILY [facility] Last Admin: 09/08/19 11:00 Dose: 81 mg Carvedilol (Coreg -) 25 mg PO BID [facility] Last Admin: 09/08/19 22:08 Dose: 25 mg Enoxaparin Sodium (Lovenox -) 40 mg SQ DAILY [facility] Last Admin: 09/08/19 11:00 Dose: 40 mg Furosemide (Lasix -) 40 mg PO BID@0600,1400 [facility] Last Admin: 09/09/19 06:23 Dose: 40 mg Insulin Aspart (Novolog Vial Sliding Scale -) 1 vial SQ [facility]; Protocol Last Admin: 09/09/19 06:57 Dose: Not Given Insulin Detemir (Levemir Vial) 10 units SQ [facility] Last Admin: 09/08/19 22:30 Dose: 10 units Losartan Potassium (Cozaar -) 25 mg PO DAILY [facility] Last Admin: 09/08/19 11:00 Dose: 25 mg Spironolactone (Aldactone -) 25 mg PO DAILY [facility] Last Admin: 09/08/19 11:00 Dose: 25 mg - Objective Vital Signs: Vital Signs Temperature 97.9 F 09/09/19 06:00 Pulse Rate 93 H 09/09/19 06:00 Respiratory Rate 18 09/09/19 06:00 Blood Pressure 127/73 09/09/19 06:00 O2 Sat by Pulse Oximetry (%) 98 09/08/19 21:00 Additional Findings/Remarks: Constitutional: Yes: Well Nourished, No Distress, Calm Eyes: Yes: WNL, Conjunctiva Clear HENT: Yes: WNL, Atraumatic, Normocephalic Neck: Yes: WNL, Supple, Trachea Midline Cardiovascular: Yes: WNL, Regular Rate and Rhythm Respiratory: Yes: Regular, CTA Bilaterally, Diminished (at bases), On Nasal O2, SOB on Exertion Gastrointestinal: Yes: WNL, Normal Bowel Sounds Genitourinary: Yes: WNL Breast(s): Yes: WNL Musculoskeletal: Yes: WNL Extremities: Yes: WNL Edema: No Peripheral Pulses WNL: Yes Peripheral Pulses: Left Radial: 2+, Right Radial: 2+, Left Doralis Pedis: 2+, Right Dorsalis Pedis: 2+, Left Femoral: 2+, Right Femoral: 2+ Integumentary: Yes: WNL Neurological: Yes: WNL, Alert, Oriented ...Motor Strength: WNL Psychiatric: Yes: WNL Labs: CBC, BMP 09/08/19 06:40 09/08/19 06:40 INR, PTT INR 1.11 (0.83-1.09) H 09/07/19 13:25 Problem List - Problems (1) Diabetes mellitus Assessment/Plan: HgbA1c 13.7 BGM better controlled on levemir BGM AC/HS with novolog sliding scale most likely will need levemir and sliding scale on discharge diabetic diet Code(s): E11.9 - TYPE 2 DIABETES MELLITUS WITHOUT COMPLICATIONS (2) Breast cancer Assessment/Plan: s/p lumpectomy with chemo and RT Code(s): C50.919 - MALIGNANT NEOPLASM OF UNSP SITE OF UNSPECIFIED FEMALE BREAST (3) SOB (shortness of breath) Assessment/Plan: supplemental O2 to maintain SPO2 >90% Decreased EF c/w lasix 40mg q12 PO c/w aldactone, monitor K Code(s): R06.02 - SHORTNESS OF BREATH (4) Prophylactic measure Assessment/Plan: FEN Fluids: adequate PO intake, no additional IVF Electrolytes: monitor & replete as needed Nutrition: low Na diet DVT moderate risk sq lovenox Dispo Maintain as inpatient on tele until fitted for zoll vest full code discharge planning Code(s): Z29.9 - ENCOUNTER FOR PROPHYLACTIC MEASURES, UNSPECIFIED (5) HTN (hypertension) Assessment/Plan: normotensive will stop losartan stopped and starting entresto in 36h Code(s): I10 - ESSENTIAL (PRIMARY) HYPERTENSION (6) CHF exacerbation Assessment/Plan: acute on chronic HF reduced EF 30%, med non-complaince c/w lasix daily weights Strict I/Os did not tolerate lisinipril in past d/t cough to start with entrero in 36 h cardiology consultation appreciated awaiting for zoll life vest Code(s): I50.9 - HEART FAILURE, UNSPECIFIED (7) Hypomagnesemia Assessment/Plan: resolving with repletion 2g IV given Code(s): E83.42 - HYPOMAGNESEMIA Visit type - Emergency Visit Emergency Visit: Yes ED Registration Date: 09/07/19 Care time: The patient presented to the Emergency Department on the above date and was hospitalized for further evaluation of their emergent condition. - New Patient This patient is new to me today: No - Critical Care Critical Care patient: No - Discharge Referral Referred to [facility] Med P.C.: No
[2019-09-09] MEDS: ENOXAPARIN NA (PORCINE) 40 MG/0.4 ML DISP.SYRIN SQ SCH (09:59)
[2019-09-09] MEDS: CARVEDILOL 25 MG TABLET (FP) PO SCH ×2 (09:59→21:54)
[2019-09-09] MEDS: ASPIRIN 81 MG CHEWABLE TABLETS PO SCH (09:59)
[2019-09-09] MEDS: LOSARTAN POTASSIUM 25 MG TABLET PO SCH (09:59)
[2019-09-09] MEDS: SPIRONOLACTONE 25 MG TABLET (FP) PO SCH (09:59)
[2019-09-09 10:13] LABS: BASO % 0.8 % (0-2.0); EOS % 1.1 % (0-4.5); HEMATOCRIT 35.9 % (32.4-45.2); HEMOGLOBIN 12.1 GM/dL (10.7-15.3); LYMPH % 23.4 % (8-40); MCHC 33.5 g/dl (32.0-36.0); MEAN CELL VOLUME 83.5 fl (80-96); MEAN PLT VOLUME 7.9 fl (7.5-11.1); MONO % 7.7 % (3.8-10.2); PLATELET COUNT 289 K/MM3 (134-434); RDW 13.9 % (11.6-15.6); WHITE BLOOD COUNT 6.2 K/mm3 (4.0-10.0)
[2019-09-09 10:49] LABS: ALBUMIN 3.5 g/dl (3.4-5.0); BILIRUBIN,TOTAL 1.1 mg/dL (0.2-1); BLOOD UREA NITROGEN 17.2 mg/dL (7-18); CALCIUM 9.1 mg/dL (8.5-10.1); CREATININE 0.8 mg/dL (0.55-1.3); MAGNESIUM 1.8 mg/dL (1.8-2.4); POTASSIUM 3.8 mmol/L (3.5-5.1); TOT PROT 8.2 g/dl (6.4-8.2)
[2019-09-09] MEDS: INSULIN (LEVEMIR) 100 UNITS/ML UNITS SQ SCH (21:55)
--- NOTE | 2019-09-09 23:47 | PN ---
Progress Note, Physician History of Present Illness: Pt A&Ox3; no chest pain or dyspnea; never has leg swelling. - Current Medication List Current Medications: Active Medications Aspirin (Asa -) 81 mg PO DAILY [facility] Last Admin: 09/09/19 09:59 Dose: 81 mg Carvedilol (Coreg -) 25 mg PO BID [facility] Last Admin: 09/09/19 21:54 Dose: 25 mg Enoxaparin Sodium (Lovenox -) 40 mg SQ DAILY [facility] Last Admin: 09/09/19 09:59 Dose: 40 mg Furosemide (Lasix -) 40 mg PO BID@0600,1400 [facility] Last Admin: 09/09/19 15:24 Dose: 40 mg Insulin Aspart (Novolog Vial Sliding Scale -) 1 vial SQ [facility]; Protocol Last Admin: 09/09/19 21:55 Dose: 4 unit Insulin Detemir (Levemir Vial) 10 units SQ HS [facility] Last Admin: 09/09/19 21:55 Dose: 10 units Spironolactone (Aldactone -) 25 mg PO DAILY [facility] Last Admin: 09/09/19 09:59 Dose: 25 mg - Objective Vital Signs: Vital Signs Temperature 98.2 F 09/09/19 18:52 Pulse Rate 94 H 09/09/19 18:52 Respiratory Rate 18 09/09/19 09:59 Blood Pressure 104/78 09/09/19 18:52 O2 Sat by Pulse Oximetry (%) 98 09/09/19 18:52 Constitutional: Yes: Anxious Eyes: Yes: WNL HENT: Yes: WNL Cardiovascular: Yes: S1, S2 Respiratory: Yes: WNL Gastrointestinal: Yes: Soft. No: Tenderness ...Rectal Exam: Yes: Deferred Genitourinary: No: Anuria Breast(s): Yes: WNL Musculoskeletal: Yes: WNL Extremities: Yes: WNL Edema: No Peripheral Pulses WNL: Yes Integumentary: Yes: WNL Neurological: Yes: WNL Psychiatric: Yes: WNL Labs: CBC, BMP 09/09/19 10:00 09/09/19 10:00 INR, PTT INR 1.11 (0.83-1.09) H 09/07/19 13:25 Abnormal Lab Results 09/09/19 09/10/19 09/10/19 10:00 06:54 06:54 Lymphocytes % 43.4 H D Monocytes % 11.0 H Anion Gap 7 L BUN 20.4 H Random Glucose 221 H 108 H Total Bilirubin 1.1 H - ....Imaging Chest X-ray: Image Reviewed (no acute pathology) EKG: Image Reviewed (sinus tachycardia) Problem List - Problems (1) Systolic CHF with reduced left ventricular function, NYHA class 2 Assessment/Plan: On ccavedilol. On losartan: consdier changing to Entresto, if insurance will cover. Spironolactone. BUN/Cr, Is and Os, daily weight, electrolytes. Pt says she had a coronary angiogram a few years ago that did not require PCI, CABG, or valve procedure. Awaits Life vest prior to discharge home. Code(s): I50.20 - UNSPECIFIED SYSTOLIC (CONGESTIVE) HEART FAILURE (2) HTN (hypertension) Code(s): I10 - ESSENTIAL (PRIMARY) HYPERTENSION (3) Poorly controlled diabetes mellitus Assessment/Plan: Recommend SGLT-2 inhibitor (e.g. Jardience) for DM, CHF. Code(s): E11.65 - TYPE 2 DIABETES MELLITUS WITH HYPERGLYCEMIA
[2019-09-10] MEDS: FUROSEMIDE 40 MG TABLET (FP) PO SCH ×2 (06:09→15:15)
[2019-09-10] MEDS: INSULIN SLIDING SCALE (NOVOLOG) 1 VIAL SQ SCH ×4 (06:10→21:21)
[2019-09-10 07:49] LABS: BASO % 0.4 % (0-2.0); EOS % 2.1 % (0-4.5); HEMOGLOBIN 12.3 GM/dL (10.7-15.3); LYMPH % 43.4 % (8-40); MCH 28.5 pg (25.7-33.7); MCHC 34.1 g/dl (32.0-36.0); MEAN CELL VOLUME 83.6 fl (80-96); MEAN PLT VOLUME 7.9 fl (7.5-11.1); NEUT % 43.1 % (42.8-82.8); PLATELET COUNT 291 K/MM3 (134-434); RBC 4.31 M/mm3 (3.60-5.2); WHITE BLOOD COUNT 4.7 K/mm3 (4.0-10.0)
[2019-09-10 08:28] LABS: ALBUMIN 3.4 g/dl (3.4-5.0); BLOOD UREA NITROGEN 20.4 mg/dL (7-18); CALCIUM 8.8 mg/dL (8.5-10.1); CREATININE 0.8 mg/dL (0.55-1.3); MAGNESIUM 1.8 mg/dL (1.8-2.4); POTASSIUM 3.6 mmol/L (3.5-5.1); TOT PROT 7.8 g/dl (6.4-8.2)
[2019-09-10] MEDS: ASPIRIN 81 MG CHEWABLE TABLETS PO SCH (09:14)
[2019-09-10] MEDS: SPIRONOLACTONE 25 MG TABLET (FP) PO SCH (09:14)
[2019-09-10] MEDS: ENOXAPARIN NA (PORCINE) 40 MG/0.4 ML DISP.SYRIN SQ SCH (09:14)
[2019-09-10] MEDS: CARVEDILOL 25 MG TABLET (FP) PO SCH ×2 (09:14→21:22)
--- NOTE | 2019-09-10 09:16 | PN ---
Progress Note, Physician Chief Complaint: Awaiting [employer] rep to fit her for the Life Vest. To start on entresto-off losartan since yesterday. Able to ambulate without O2. Can be discharged when vest is fitted. History of Present Illness: Patient is a 59 year old female with past medical history of HFrEF, HTN, NIDDM, breast cancer (diagnosed in 2010) s/p lumpectomy with chemo and radiation in Aug 2011, who presented to the ED due to worsening shortness of breath for 2 days. - Current Medication List Current Medications: Active Medications Aspirin (Asa -) 81 mg PO DAILY [facility] Last Admin: 09/10/19 09:14 Dose: 81 mg Carvedilol (Coreg -) 25 mg PO BID [facility] Last Admin: 09/10/19 09:14 Dose: 25 mg Enoxaparin Sodium (Lovenox -) 40 mg SQ DAILY [facility] Last Admin: 09/10/19 09:14 Dose: 40 mg Furosemide (Lasix -) 40 mg PO BID@0600,1400 [facility] Last Admin: 09/10/19 06:09 Dose: 40 mg Insulin Aspart (Novolog Vial Sliding Scale -) 1 vial SQ [facility]; Protocol Last Admin: 09/10/19 06:10 Dose: Not Given Insulin Detemir (Levemir Vial) 10 units SQ [facility] Last Admin: 09/09/19 21:55 Dose: 10 units Spironolactone (Aldactone -) 25 mg PO DAILY [facility] Last Admin: 09/10/19 09:14 Dose: 25 mg - Objective Vital Signs: Vital Signs Temperature 97.5 F L 09/10/19 07:10 Pulse Rate 84 09/10/19 07:10 Respiratory Rate 20 09/10/19 07:10 Blood Pressure 102/53 L 09/10/19 07:10 O2 Sat by Pulse Oximetry (%) 97 09/10/19 07:10 Additional Findings/Remarks: Constitutional: Yes: Well Nourished, No Distress, Calm Eyes: Yes: WNL, Conjunctiva Clear HENT: Yes: WNL, Atraumatic, Normocephalic Neck: Yes: WNL, Supple, Trachea Midline Cardiovascular: Yes: WNL, Regular Rate and Rhythm Respiratory: Yes: Regular, CTA Bilaterally Gastrointestinal: Yes: WNL, Normal Bowel Sounds Genitourinary: Yes: WNL Breast(s): Yes: WNL Musculoskeletal: Yes: WNL Extremities: Yes: WNL Edema: No Peripheral Pulses WNL: Yes Peripheral Pulses: Left Radial: 2+, Right Radial: 2+, Left Doralis Pedis: 2+, Right Dorsalis Pedis: 2+, Left Femoral: 2+, Right Femoral: 2+ Integumentary: Yes: WNL Neurological: Yes: WNL, Alert, Oriented ...Motor Strength: WNL Psychiatric: Yes: WNL Labs: CBC, BMP 09/10/19 06:54 09/10/19 06:54 INR, PTT INR 1.11 (0.83-1.09) H 09/07/19 13:25 Problem List - Problems (1) Diabetes mellitus Assessment/Plan: HgbA1c 13.7 BGM well controlled on levemir BGM AC/HS with novolog sliding scale c/w levemir and sliding scale on discharge diabetic diet Code(s): E11.9 - TYPE 2 DIABETES MELLITUS WITHOUT COMPLICATIONS (2) Breast cancer Assessment/Plan: s/p lumpectomy with chemo and RT Code(s): C50.919 - MALIGNANT NEOPLASM OF UNSP SITE OF UNSPECIFIED FEMALE BREAST (3) SOB (shortness of breath) Assessment/Plan: supplemental O2 to maintain SPO2 >90% Decreased EF c/w lasix 40mg q12 PO c/w aldactone, monitor K Code(s): R06.02 - SHORTNESS OF BREATH (4) Prophylactic measure Assessment/Plan: FEN Fluids: adequate PO intake, no additional IVF Electrolytes: monitor & replete as needed Nutrition: low Na diet DVT moderate risk sq lovenox Dispo Maintain as inpatient on tele until fitted for zoll vest full code discharge planning Code(s): Z29.9 - ENCOUNTER FOR PROPHYLACTIC MEASURES, UNSPECIFIED (5) HTN (hypertension) Assessment/Plan: normotensive losartan stopped and starting entresto Code(s): I10 - ESSENTIAL (PRIMARY) HYPERTENSION (6) CHF exacerbation Assessment/Plan: acute on chronic HF reduced EF 30%, med non-complaince c/w lasix daily weights Strict I/Os did not tolerate lisinipril in past d/t cough to start with entrero tmrw cardiology consultation appreciated awaiting for zoll life vest Code(s): I50.9 - HEART FAILURE, UNSPECIFIED (7) Hypomagnesemia Assessment/Plan: resolved Code(s): E83.42 - HYPOMAGNESEMIA Visit type - Emergency Visit Emergency Visit: Yes ED Registration Date: 09/07/19 Care time: The patient presented to the Emergency Department on the above date and was hospitalized for further evaluation of their emergent condition. - New Patient This patient is new to me today: No - Critical Care Critical Care patient: No - Discharge Referral Referred to [facility] Med P.C.: No
--- NOTE | 2019-09-10 11:54 | PN ---
Progress Note, Physician History of Present Illness: Patient is a 59 year old female with past medical history of HFrEF, HTN, NIDDM, breast cancer (diagnosed in 2010) s/p lumpectomy with chemo and radiation in Aug 2011, who presented to the ED due to worsening shortness of breath for 2 days. PAtient reported SOB started suddenly yesterday while at work, and noted it to be worse when she was walking around. She also reports left sided chest pressure, nonradiating, constant, nonpositional, with no aggravating or alleviating factors. Patient also endorses nonproductive cough that started 2 days ago but denies any fevers, chills, headache, dizziness, abdominal pain, diarrhea, urinary symptoms. Upon arrival at the ED, patient was noted to be hypoxic at the 80s, and was subsequently placed on nasal cannula with relief of dyspnea. Of note, patient had similar symptoms during her previous admission in 2015 where she had dyspnea on exertion. ER course was notable for: (1)Chest CTA: no evidence of pulmonary embolus within the main pulmonary artery and its proximal branches, bilaterally. Bilateral mainly central lung groundglass opacity/haziness suggestive of pulmonary venous congestion vs infiltrates. Small bilateral pleural effusion. Mild cardiomegaly without gross evidence of pericardial effusion. (2)BNP 946.3 (3) - Current Medication List Current Medications: Active Medications Aspirin (Asa -) 81 mg PO DAILY [facility] Last Admin: 09/10/19 09:14 Dose: 81 mg Carvedilol (Coreg -) 25 mg PO BID [facility] Last Admin: 09/10/19 09:14 Dose: 25 mg Enoxaparin Sodium (Lovenox -) 40 mg SQ DAILY [facility] Last Admin: 09/10/19 09:14 Dose: 40 mg Furosemide (Lasix -) 40 mg PO BID@0600,1400 [facility] Last Admin: 09/10/19 06:09 Dose: 40 mg Insulin Aspart (Novolog Vial Sliding Scale -) 1 vial SQ [facility]; Protocol Last Admin: 09/10/19 11:06 Dose: 2 unit Insulin Detemir (Levemir Vial) 10 units SQ HS [facility] Last Admin: 09/09/19 21:55 Dose: 10 units Spironolactone (Aldactone -) 25 mg PO DAILY [facility] Last Admin: 09/10/19 09:14 Dose: 25 mg - Objective Vital Signs: Vital Signs Temperature 97.5 F L 09/10/19 07:10 Pulse Rate 84 09/10/19 07:10 Respiratory Rate 20 09/10/19 07:10 Blood Pressure 102/53 L 09/10/19 07:10 O2 Sat by Pulse Oximetry (%) 97 09/10/19 07:10 Eyes: Yes: WNL, Conjunctiva Clear, EOM Intact HENT: Yes: WNL, Atraumatic, Normocephalic Neck: Yes: WNL, Supple, Trachea Midline Cardiovascular: Yes: WNL, Regular Rate and Rhythm Respiratory: Yes: WNL, Regular, CTA Bilaterally Gastrointestinal: Yes: WNL, Normal Bowel Sounds Genitourinary: Yes: WNL Musculoskeletal: Yes: WNL Extremities: Yes: WNL Edema: No Integumentary: Yes: WNL Neurological: Yes: WNL, Alert, Oriented ...Motor Strength: WNL Psychiatric: Yes: WNL Labs: CBC, BMP 09/10/19 06:54 09/10/19 06:54 INR, PTT INR 1.11 (0.83-1.09) H 09/07/19 13:25 Problem List - Problems (1) Breast cancer Code(s): C50.919 - MALIGNANT NEOPLASM OF UNSP SITE OF UNSPECIFIED FEMALE BREAST (2) Chest pressure Code(s): R07.89 - OTHER CHEST PAIN (3) KEYS (dyspnea on exertion) Code(s): R06.09 - OTHER FORMS OF DYSPNEA (4) Diabetes mellitus Code(s): E11.9 - TYPE 2 DIABETES MELLITUS WITHOUT COMPLICATIONS (5) Prophylactic measure Code(s): Z29.9 - ENCOUNTER FOR PROPHYLACTIC MEASURES, UNSPECIFIED (6) SOB (shortness of breath) Code(s): R06.02 - SHORTNESS OF BREATH (7) CHF exacerbation Code(s): I50.9 - HEART FAILURE, UNSPECIFIED (8) Cardiomegaly Code(s): I51.7 - CARDIOMEGALY (9) Dilated cardiomyopathy Code(s): I42.0 - DILATED CARDIOMYOPATHY (10) Dyspnea Code(s): R06.00 - DYSPNEA, UNSPECIFIED Qualifiers: Dyspnea type: shortness of breath Qualified Code(s): R06.02 - Shortness of breath (11) HTN (hypertension) Code(s): I10 - ESSENTIAL (PRIMARY) HYPERTENSION (12) Hyperglycemia Code(s): R73.9 - HYPERGLYCEMIA, UNSPECIFIED (13) Poorly controlled diabetes mellitus Code(s): E11.65 - TYPE 2 DIABETES MELLITUS WITH HYPERGLYCEMIA Assessment/Plan - Problems (1) Systolic CHF with reduced left ventricular function, NYHA class 2 Assessment/Plan: On ccavedilol. On losartan: consdier changing to Entresto, if insurance will cover. Spironolactone. BUN/Cr, Is and Os, daily weight, electrolytes. Pt says she had a coronary angiogram a few years ago that did not require PCI, CABG, or valve procedure. Awaits Life vest prior to discharge home. Importanve of complience with f/u and meds discussed extensively. Understands risks of sudden /progression of CHF. Code(s): I50.20 - UNSPECIFIED SYSTOLIC (CONGESTIVE) HEART FAILURE (2) HTN (hypertension) Code(s): I10 - ESSENTIAL (PRIMARY) HYPERTENSION (3) Poorly controlled diabetes mellitus Assessment/Plan: Recommend SGLT-2 inhibitor (e.g. Jardience) for DM, CHF. Code(s): E11.65 - TYPE 2 DIABETES MELLITUS WITH HYPERGLYCEMIA
--- NOTE | 2019-09-10 15:02 | EKG ---
Test Reason : Blood Pressure : / mmHG Vent. Rate : 092 BPM Atrial Rate : 092 BPM P-R Int : 152 ms QRS Dur : 098 ms QT Int : 380 ms P-R-T Axes : 049 -06 112 degrees QTc Int : 469 ms NORMAL SINUS RHYTHM POSSIBLE LEFT ATRIAL ENLARGEMENT LEFT VENTRICULAR HYPERTROPHY PROLONGED QT ABNORMAL ECG WHEN COMPARED WITH ECG OF 07-SEP-2019 12:18, NO SIGNIFICANT CHANGE WAS FOUND Confirmed by DEISY RAMON MD ([id number]) on 09/10/2019 3:02:15 PM Referred By: Confirmed By:DEISY RAMON MD
[2019-09-10] MEDS ORDERED: MAGNESIUM OXIDE 400 MG TABLET (FP) PO ONE (15:45)
[2019-09-10 16:15] VITALS: BMI 25.7
[2019-09-10] MEDS: INSULIN (LEVEMIR) 100 UNITS/ML UNITS SQ SCH (21:22)
[2019-09-11] MEDS: FUROSEMIDE 40 MG TABLET (FP) PO SCH (05:27)
[2019-09-11] MEDS: INSULIN SLIDING SCALE (NOVOLOG) 1 VIAL SQ SCH ×4 (06:54→21:43)
[2019-09-11 07:03] LABS: BASO % 0.6 % (0-2.0); EOS % 2.1 % (0-4.5); HEMATOCRIT 38.3 % (32.4-45.2); HEMOGLOBIN 13.1 GM/dL (10.7-15.3); LYMPH % 44.9 % (8-40); MCH 28.9 pg (25.7-33.7); MCHC 34.3 g/dl (32.0-36.0); MEAN CELL VOLUME 84.3 fl (80-96); MEAN PLT VOLUME 7.9 fl (7.5-11.1); MONO % 10.6 % (3.8-10.2); NEUT % 41.8 % (42.8-82.8); PLATELET COUNT 315 K/MM3 (134-434); RBC 4.54 M/mm3 (3.60-5.2); RDW 13.6 % (11.6-15.6); WHITE BLOOD COUNT 5.1 K/mm3 (4.0-10.0)
[2019-09-11 07:29] LABS: ALBUMIN 3.5 g/dl (3.4-5.0); BILIRUBIN,TOTAL 0.9 mg/dL (0.2-1); BLOOD UREA NITROGEN 21.8 mg/dL (7-18); CALCIUM 9.5 mg/dL (8.5-10.1); CREATININE 0.8 mg/dL (0.55-1.3); MAGNESIUM 1.8 mg/dL (1.8-2.4); POTASSIUM 4.1 mmol/L (3.5-5.1); TOT PROT 8.2 g/dl (6.4-8.2)
[2019-09-11] MEDS: ENOXAPARIN NA (PORCINE) 40 MG/0.4 ML DISP.SYRIN SQ SCH (09:59)
[2019-09-11] MEDS: SPIRONOLACTONE 25 MG TABLET (FP) PO SCH (09:59)
[2019-09-11] MEDS: ASPIRIN 81 MG CHEWABLE TABLETS PO SCH (09:59)
[2019-09-11] MEDS: CARVEDILOL 25 MG TABLET (FP) PO SCH ×2 (09:59→21:43)
[2019-09-11] MEDS ORDERED: SACUBITRIL/VALSARTAN 24 MG-26 MG TABLET PO SCH (10:00)
--- NOTE | 2019-09-11 11:23 | PN ---
Progress Note (short form) - Note Progress Note: Coverage for Dr. Edward Malik Chief Complaint: Events noted, notes reviewed, dyspnea improved with treatment, denies any chest discomfort History of Present Illness: Seen and examined on telemetry. Events noted, notes reviewed, dyspnea improved with treatment, denies any chest discomfort Long discussion with the patient in reference to her presentation which is consistent with non- ischemic dilated cardiomyopathy/diagnosis was established in 2016- had R&LHC/coronary angiography performed (originally in 1996 after giving to her son- probable post- cardiomyopathy), pateint is to be optimized medically and to to be D/C home with Life-Vest application prior to proceeding with prophylactic ICD implant (I don't think that a waiting period is needed perior to ICD implant)- patient will require eventual evaluation by heart failure/transplant team Medications: Current Medications Aspirin (Asa -) 81 mg PO DAILY [facility] Last Admin: 09/11/19 09:59 Dose: 81 mg Carvedilol (Coreg -) 25 mg PO BID [facility] Last Admin: 09/11/19 09:59 Dose: 25 mg Enoxaparin Sodium (Lovenox -) 40 mg SQ DAILY [facility] Last Admin: 09/11/19 09:59 Dose: 40 mg Furosemide (Lasix -) 40 mg PO BID@0600,1400 [facility] Last Admin: 09/11/19 05:27 Dose: 40 mg Insulin Aspart (Novolog Vial Sliding Scale -) 1 vial SQ [facility]; Protocol Last Admin: 09/11/19 06:54 Dose: Not Given Insulin Detemir (Levemir Vial) [address] [facility] Last Admin: 09/10/19 21:22 Dose: 10 units Sacubitril/Valsartan (Entresto 24 Mg-26 Mg Tablet) 1 tab PO BID [facility] Last Admin: 09/11/19 09:59 Dose: 1 tab Spironolactone (Aldactone -) 25 mg PO DAILY [facility] Last Admin: 09/11/19 09:59 Dose: 25 mg Review of Systems - Review of Systems Constitutional: denies: Chills, Fever Cardiovascular: As noted above Respiratory: denies: Cough or Sputum Production Gastrointestinal: denies: Nausea, Vomiting, Diarrhea, Constipation or Abdominal Pain Neurological: denies: Headaches Vital Signs: Last Vital Signs Temp Pulse Resp BP Pulse Ox 98.0 F 98 H 18 135/71 97 09/11/19 09:00 09/11/19 09:00 09/11/19 09:00 09/11/19 09:00 09/10/19 21:00 Intake & Output 09/08/19 09/09/19 09/10/19 09/11/19 23:59 23:59 23:59 23:59 Intake Total 250 915 120 Balance 250 915 120 Weight 149 lb 9.6 oz 147 lb 6.4 oz Neck: Supple Negative JVD No Bruit Respiratory: Clear bilaterally Cardiovascular: S1 S2 Regular Rate and Rhythm Gastrointestinal: Soft Benign Normal Bowel Sounds Ext: Negative Edema Labs: CBC, BMP 09/11/19 06:28 09/11/19 06:28 Hepatic Panel Total Bilirubin 0.9 mg/dL (0.2-1) 09/11/19 06:28 AST 27 U/L (15-37) 09/11/19 06:28 ALT 29 U/L (13-61) 09/11/19 06:28 Alkaline Phosphatase 80 U/L (45-117) 09/11/19 06:28 Albumin 3.5 g/dl (3.4-5.0) 09/11/19 06:28 INR, PTT INR 1.11 (0.83-1.09) H 09/07/19 13:25 Assessment/Plan ASSESSMENT: 1. 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 Hypertensive heart disease 3. DM 4. Pre-renal azotemia 5. History of breat carcinoma post lumpectomy/chemotherapy PLAN: 1. Continue Coreg 2. Continue Entresto and titrate dosage as tolerated 3. Continue Aldactone 4. Continue Lasix but decrease dosage/once daily 5. Can be D/C home form the cardiovascular point of view and F/U with cardiology (Dr. Edward Malik) for further intervention as note above- prophylactic ICD implant and eventual evaluation by heart failure/transplant team Caitlin Paulson M.D.
--- NOTE | 2019-09-11 17:21 | PN ---
Physical Exam: SUBJECTIVE: Patient seen and examined. She complains of dizziness. OBJECTIVE: Vital Signs Period Temp Pulse Resp BP Sys/Quesada Pulse Ox Last 24 Hr 97.4 F-98.3 F 81-98 16-20 103-135/50-71 97-99 GENERAL: The patient is awake, alert, and fully oriented, in no acute distress. HEAD: Normal with no signs of trauma. EYES: PERRL, extraocular movements intact, sclera anicteric, conjunctiva clear. No ptosis. ENT: Ears normal, nares patent, oropharynx clear without exudates, moist mucous membranes. NECK: Trachea midline, full range of motion, supple. LUNGS: Breath sounds equal, clear to auscultation bilaterally, no wheezes, no crackles, no accessory muscle use. HEART: Regular rate and rhythm, S1, S2 without murmur, rub or gallop. ABDOMEN: Soft, nontender, nondistended, normoactive bowel sounds, no guarding, no rebound, no hepatosplenomegaly, no masses. EXTREMITIES: 2+ pulses, warm, well-perfused, no edema. NEUROLOGICAL: Cranial nerves II through XII grossly intact. Normal speech, gait not observed. PSYCH: Normal mood, normal affect. SKIN: Warm, dry, normal turgor, no rashes or lesions noted Laboratory Results - last 24 hr 09/10/19 09/10/19 09/11/19 17:08 21:19 05:25 WBC RBC Hgb Hct MCV MCH MCHC RDW Plt Count MPV Absolute Neuts (auto) Neutrophils % Lymphocytes % Monocytes % Eosinophils % Basophils % Nucleated RBC % Sodium Potassium Chloride Carbon Dioxide Anion Gap BUN Creatinine Est GFR (CKD-EPI)AfAm Est GFR (CKD-EPI)NonAf POC Glucometer 246 242 133 Random Glucose Calcium Magnesium Total Bilirubin AST ALT Alkaline Phosphatase Total Protein Albumin 09/11/19 09/11/19 09/11/19 06:28 06:28 11:43 WBC 5.1 RBC 4.54 Hgb 13.1 Hct 38.3 MCV 84.3 MCH 28.9 MCHC 34.3 RDW 13.6 Plt Count 315 MPV 7.9 Absolute Neuts (auto) 2.1 Neutrophils % 41.8 L Lymphocytes % 44.9 H Monocytes % 10.6 H Eosinophils % 2.1 Basophils % 0.6 Nucleated RBC % 0 Sodium 138 Potassium 4.1 Chloride 103 Carbon Dioxide 27 Anion Gap 8 BUN 21.8 H Creatinine 0.8 Est GFR (CKD-EPI)AfAm 93.53 Est GFR (CKD-EPI)NonAf 80.70 POC Glucometer 281 Random Glucose 143 H Calcium 9.5 Magnesium 1.8 Total Bilirubin 0.9 AST 27 ALT 29 Alkaline Phosphatase 80 Total Protein 8.2 Albumin 3.5 Active Medications Generic Name Dose Route Start Last Admin Trade Name Freq PRN Reason Stop Dose Admin Aspirin 81 mg 09/08/19 10:00 09/11/19 09:59 Asa - PO 81 mg DAILY [facility]EL Administration Carvedilol 25 mg 09/07/19 22:00 09/11/19 09:59 Coreg - PO 25 mg BID [facility] Administration Enoxaparin Sodium 40 mg 09/08/19 10:00 09/11/19 09:59 Lovenox - SQ 40 mg DAILY [facility] Administration Furosemide 40 mg 09/12/19 10:00 Lasix - PO DAILY [facility] Insulin Aspart 1 vial 09/07/19 22:00 09/11/19 11:43 Novolog Vial Sliding Scale - SQ 6 unit ACHS [facility]EL Administration Protocol Insulin Detemir 10 units 09/08/19 22:00 09/10/19 21:22 Levemir Vial SQ 10 units HS [facility] Administration Sacubitril/Valsartan 1 tab 09/11/19 22:00 Entresto 49 Mg-51 Mg Tablet PO BID [facility] Spironolactone 25 mg 09/08/19 10:00 09/11/19 09:59 Aldactone - PO 25 mg DAILY [facility] Administration ASSESSMENT/PLAN: This is a 59 year old woman with a history of HTN, chronic systolic heart failure, type 2 DM, breast cancer who presented to the ED with worsening SOB. 1. Dilated cardiomyopathy with chronic systolic heart failure - Echo shows mildly dilated LV with severe global hypokinesis, LVEF 30%, severely dilated LA, mild to moderate MR, mild TR, RVSP 35 mmHg - Entresto started - dose being increased - Lasix dose being decreased - Continue Coreg, Aldactone - Currently being fitted for LifeVest 2. Dizziness - Possibly secondary to borderline low BP - Meds being adjusted - Monitor BP and check orthostatics 3. Hypomagnesemia - Continue to supplement magnesium to keep >2.0 4. Acute systolic heart failure - Improved 5. HTN - Continue Coreg, Aldactone, Lasix 6. Type 2 DM - Continue Levemir, Novolog sliding scale 7. Disposition - Discharge in Am if stable overnight Visit type - Emergency Visit Emergency Visit: Yes ED Registration Date: 09/07/19 Care time: The patient presented to the Emergency Department on the above date and was hospitalized for further evaluation of their emergent condition. - New Patient This patient is new to me today: Yes Date on this admission: 09/11/19 - Critical Care Critical Care patient: No - Discharge Referral Referred to [facility] Med P.C.: No
[2019-09-11] MEDS ORDERED: MAGNESIUM OXIDE 400 MG TABLET (FP) PO ONE (18:03)
[2019-09-11] MEDS ORDERED: PT OWN MED DRAWER 7, Y5N ONE (21:39)
[2019-09-11] MEDS: SACUBITRIL/VALSARTAN 49 MG-51 MG TABLET PO SCH (21:42)
[2019-09-11] MEDS: INSULIN (LEVEMIR) 100 UNITS/ML UNITS SQ SCH (21:43)
[2019-09-12] MEDS: INSULIN SLIDING SCALE (NOVOLOG) 1 VIAL SQ SCH ×4 (06:38→21:33)
[2019-09-12 07:01] LABS: BASO % 0.4 % (0-2.0); HEMATOCRIT 32.7 % (32.4-45.2); HEMOGLOBIN 10.8 GM/dL (10.7-15.3); LYMPH % 11.8 % (8-40); MCH 30.7 pg (25.7-33.7); MCHC 33.2 g/dl (32.0-36.0); MEAN CELL VOLUME 92.5 fl (80-96); MEAN PLT VOLUME 8.4 fl (7.5-11.1); MONO % 5.1 % (3.8-10.2); NEUT % 82.7 % (42.8-82.8); PLATELET COUNT 295 K/MM3 (134-434); RBC 3.53 M/mm3 (3.60-5.2); RDW 18.3 % (11.6-15.6); WHITE BLOOD COUNT 10.7 K/mm3 (4.0-10.0)
--- NOTE | 2019-09-12 07:32 | PN ---
Progress Note, Physician Chief Complaint: Like vest fitted. Dizziness resoolving DM teaching in progress for discharge History of Present Illness: Patient is a 59 year old female with past medical history of HFrEF, HTN, NIDDM, breast cancer (diagnosed in 2010) s/p lumpectomy with chemo and radiation in Aug 2011, who presented to the ED due to worsening shortness of breath for 2 days. - Current Medication List Current Medications: Active Medications Aspirin (Asa -) 81 mg PO DAILY [facility] Last Admin: 09/11/19 09:59 Dose: 81 mg Carvedilol (Coreg -) 25 mg PO BID [facility] Last Admin: 09/11/19 21:43 Dose: 25 mg Enoxaparin Sodium (Lovenox -) 40 mg SQ DAILY [facility] Last Admin: 09/11/19 09:59 Dose: 40 mg Furosemide (Lasix -) 40 mg PO DAILY [facility] Insulin Aspart (Novolog Vial Sliding Scale -) 1 vial SQ [facility]; Protocol Last Admin: 09/12/19 06:38 Dose: Not Given Insulin Detemir (Levemir Vial) 10 units SQ HS [facility] Last Admin: 09/11/19 21:43 Dose: 10 units Sacubitril/Valsartan (Entresto 49 Mg-51 Mg Tablet) 1 tab PO BID [facility] Last Admin: 09/11/19 21:42 Dose: 1 tab Spironolactone (Aldactone -) 25 mg PO DAILY [facility] Last Admin: 09/11/19 09:59 Dose: 25 mg - Objective Vital Signs: Vital Signs Temperature 98.1 F 09/12/19 02:00 Pulse Rate 81 09/12/19 02:00 Respiratory Rate 18 09/12/19 02:00 Blood Pressure 97/63 09/12/19 02:00 O2 Sat by Pulse Oximetry (%) 97 09/11/19 21:00 Additional Findings/Remarks: Constitutional: Yes: Well Nourished, No Distress, Calm Eyes: Yes: WNL, Conjunctiva Clear HENT: Yes: WNL, Atraumatic, Normocephalic Neck: Yes: WNL, Supple, Trachea Midline Cardiovascular: Yes: WNL, Regular Rate and Rhythm Respiratory: Yes: Regular, CTA Bilaterally Gastrointestinal: Yes: WNL, Normal Bowel Sounds Genitourinary: Yes: WNL Breast(s): Yes: WNL Musculoskeletal: Yes: WNL Extremities: Yes: WNL Edema: No Peripheral Pulses WNL: Yes Peripheral Pulses: Left Radial: 2+, Right Radial: 2+, Left Doralis Pedis: 2+, Right Dorsalis Pedis: 2+, Left Femoral: 2+, Right Femoral: 2+ Integumentary: Yes: WNL Neurological: Yes: WNL, Alert, Oriented ...Motor Strength: WNL Psychiatric: Yes: WNL Labs: CBC, BMP 09/12/19 06:40 INR, PTT INR 1.11 (0.83-1.09) H 09/07/19 13:25 Problem List - Problems (1) Diabetes mellitus Assessment/Plan: HgbA1c 13.7 BGM better controlled on levemir BGM AC/HS with novolog sliding scale most likely will need levemir and sliding scale on discharge diabetic diet Code(s): E11.9 - TYPE 2 DIABETES MELLITUS WITHOUT COMPLICATIONS (2) Breast cancer Assessment/Plan: s/p lumpectomy with chemo and RT Code(s): C50.919 - MALIGNANT NEOPLASM OF UNSP SITE OF UNSPECIFIED FEMALE BREAST (3) SOB (shortness of breath) Assessment/Plan: supplemental O2 to maintain SPO2 >90% Decreased EF c/w lasix 40mg dw-dose decreased c/w aldactone, monitor K Code(s): R06.02 - SHORTNESS OF BREATH (4) Prophylactic measure Assessment/Plan: FEN Fluids: adequate PO intake, no additional IVF Electrolytes: monitor & replete as needed Nutrition: low Na diet DVT moderate risk sq lovenox Dispo Maintain as inpatient on tele until fitted for zoll vest full code discharge planning Code(s): Z29.9 - ENCOUNTER FOR PROPHYLACTIC MEASURES, UNSPECIFIED (5) HTN (hypertension) Assessment/Plan: normotensive will stop losartan stopped and starting entresto in 36h Code(s): I10 - ESSENTIAL (PRIMARY) HYPERTENSION (6) CHF exacerbation Assessment/Plan: acute on chronic HF reduced EF 30%, med non-complaince c/w lasix daily weights Strict I/Os c/w entresto at higher dose cardiology consultation appreciated zoll life vest fitted Code(s): I50.9 - HEART FAILURE, UNSPECIFIED (7) Hypomagnesemia Assessment/Plan: resolved Code(s): E83.42 - HYPOMAGNESEMIA Visit type - Emergency Visit Emergency Visit: Yes ED Registration Date: 09/07/19 Care time: The patient presented to the Emergency Department on the above date and was hospitalized for further evaluation of their emergent condition. - New Patient This patient is new to me today: No - Critical Care Critical Care patient: No - Discharge Referral Referred to [facility] No
[2019-09-12 07:45] LABS: BILIRUBIN,TOTAL 0.3 mg/dL (0.2-1); BLOOD UREA NITROGEN 21.4 mg/dL (7-18); CALCIUM 8.5 mg/dL (8.5-10.1); CREATININE 1.3 mg/dL (0.55-1.3); MAGNESIUM 2.1 mg/dL (1.8-2.4); POTASSIUM 3.6 mmol/L (3.5-5.1); TOT PROT 7.2 g/dl (6.4-8.2)
--- NOTE | 2019-09-12 08:18 | PN ---
Progress Note (short form) - Note Progress Note: Coverage for Dr. Edward Malik Chief Complaint: Events noted, notes reviewed, denies dyspnea, denies any chest discomfort, Life-Vest in situ- initiated last night History of Present Illness: Seen and examined on telemetry. Events noted, notes reviewed, denies dyspnea, denies any chest discomfort, Life-Vest in situ- initiated last night As outlined yesterday long discussion with the patient in reference to her presentation which is consistent with non- ischemic dilated cardiomyopathy/ diagnosis was established in 2016- had R&LHC/coronary angiography performed ( originally in 1997- correction after giving to her son- probable post- cardiomyopathy), pateint is to be optimized medically and to to be D/C home with Life-Vest utilization prior to proceeding with prophylactic ICD implant (I don't think that a waiting period is needed prior to ICD implant)- patient will require eventual evaluation by heart failure/transplant team Medications: Current Medications Aspirin (Asa -) 81 mg PO DAILY [facility] Last Admin: 09/11/19 09:59 Dose: 81 mg Carvedilol (Coreg -) 25 mg PO BID [facility] Last Admin: 09/11/19 21:43 Dose: 25 mg Enoxaparin Sodium (Lovenox -) 40 mg SQ DAILY [facility] Last Admin: 09/11/19 09:59 Dose: 40 mg Furosemide (Lasix -) 40 mg PO DAILY [facility] Insulin Aspart (Novolog Vial Sliding Scale -) 1 vial SQ [facility]; Protocol Last Admin: 09/12/19 06:38 Dose: Not Given Insulin Detemir (Levemir Vial) 10 units SQ HS [facility] Last Admin: 09/11/19 21:43 Dose: 10 units Sacubitril/Valsartan (Entresto 49 Mg-51 Mg Tablet) 1 tab PO BID [facility] Last Admin: 09/11/19 21:42 Dose: 1 tab Spironolactone (Aldactone -) 25 mg PO DAILY [facility] Last Admin: 09/11/19 09:59 Dose: 25 mg Review of Systems - Review of Systems Constitutional: denies: Chills, Fever Cardiovascular: As noted above Respiratory: denies: Cough or Sputum Production Gastrointestinal: denies: Nausea, Vomiting, Diarrhea, Constipation or Abdominal Pain Neurological: denies: Headaches Vital Signs: Last Vital Signs Temp Pulse Resp BP Pulse Ox 97.4 F L 84 18 105/50 L 97 09/12/19 06:00 09/12/19 06:00 09/12/19 06:00 09/12/19 06:00 09/11/19 21:00 Intake & Output 09/09/19 09/10/19 09/11/19 09/12/19 23:59 23:59 23:59 23:59 Intake Total 250 915 900 120 Balance 250 915 900 120 Weight 149 lb 9.6 oz 147 lb 6.4 oz 150 lb 2 oz Neck: Supple Negative JVD No Bruit Respiratory: Clear bilaterally Cardiovascular: S1 S2 Regular Rate and Rhythm Gastrointestinal: Soft Benign Normal Bowel Sounds Ext: Negative Edema Labs: CBC, BMP 09/12/19 06:40 09/12/19 06:40 Hepatic Panel Total Bilirubin 0.3 mg/dL (0.2-1) 09/12/19 06:40 AST 45 U/L (15-37) H 09/12/19 06:40 ALT 98 U/L (13-61) H 09/12/19 06:40 Alkaline Phosphatase 153 U/L (45-117) H 09/12/19 06:40 Albumin 3.0 g/dl (3.4-5.0) L 09/12/19 06:40 INR, PTT INR 1.11 (0.83-1.09) H 09/07/19 13:25 Assessment/Plan ASSESSMENT: 1. 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 Hypertensive heart disease 3. DM 4. Pre-renal azotemia 5. History of breast carcinoma post lumpectomy/chemotherapy PLAN: 1. Continue Coreg 2. Continue Entresto and titrate dosage as tolerated, outpatient titration 3. Continue Aldactone 4. Continue Lasix 5. As outlined in yesterday's note patient can be D/C home form the cardiovascular point of view and F/U with cardiology (Dr. Edward Malik) for further intervention as note above- prophylactic ICD implant and eventual evaluation by heart failure/transplant team Caitlin Paulson M.D.
[2019-09-12] MEDS: ASPIRIN 81 MG CHEWABLE TABLETS PO SCH (09:03)
[2019-09-12] MEDS: FUROSEMIDE 40 MG TABLET (FP) PO SCH (09:03)
[2019-09-12] MEDS: ENOXAPARIN NA (PORCINE) 40 MG/0.4 ML DISP.SYRIN SQ SCH (09:03)
[2019-09-12] MEDS: SACUBITRIL/VALSARTAN 49 MG-51 MG TABLET PO SCH ×2 (09:03→21:37)
[2019-09-12] MEDS: SPIRONOLACTONE 25 MG TABLET (FP) PO SCH (09:03)
[2019-09-12] MEDS: CARVEDILOL 25 MG TABLET (FP) PO SCH ×2 (09:03→21:33)
[2019-09-12 09:46] LABS: ANISOCYTOSIS 0; MACROCYTOSIS 0; PLATELET ESTIMATE NORMAL
[2019-09-12] MEDS ORDERED: INSULIN SLIDING SCALE (NOVOLOG) 1 VIAL SQ ONE (11:15)
[2019-09-12 14:30] LABS: BLOOD UREA NITROGEN 25.1 mg/dL (7-18); CALCIUM 8.9 mg/dL (8.5-10.1); POTASSIUM 4.1 mmol/L (3.5-5.1)
[2019-09-12] MEDS ORDERED: PT OWN MED DRAWER 7, Y5N ONE (21:07)
[2019-09-12] MEDS ORDERED: INSULIN (LEVEMIR) 100 UNITS/ML UNITS SQ SCH (22:00)
[2019-09-13] MEDS: INSULIN SLIDING SCALE (NOVOLOG) 1 VIAL SQ SCH ×2 (06:44→12:10)
--- NOTE | 2019-09-13 07:37 | PN ---
Progress Note (short form) - Note Progress Note: Coverage for Dr. Edward Malik Chief Complaint: Events noted, notes reviewed, denies dyspnea, denies any chest discomfort, Life-Vest in situ- remained hospitalized for insulin administration education History of Present Illness: Seen and examined on telemetry. Events noted, notes reviewed, denies dyspnea, denies any chest discomfort, Life-Vest in situ- remained hospitalized for insulin administration education As outlined in the prior notes; long discussion with the patient in reference to her presentation which is consistent with non- ischemic dilated cardiomyopathy/diagnosis was established in 2016- had R&LHC/coronary angiography performed (originally in 1997- after giving to her son- probable post- cardiomyopathy), pateint is to be optimized medically and to to be D/C home with Life-Vest utilization prior to proceeding with prophylactic ICD implant (I don't think that a waiting period is needed prior to ICD implant)- patient will require eventual evaluation by heart failure/ transplant team Medications: Current Medications Aspirin (Asa -) 81 mg PO DAILY [facility] Last Admin: 09/12/19 09:03 Dose: 81 mg Carvedilol (Coreg -) 25 mg PO BID [facility] Last Admin: 09/12/19 21:33 Dose: 25 mg Enoxaparin Sodium (Lovenox -) 40 mg SQ DAILY [facility] Last Admin: 09/12/19 09:03 Dose: 40 mg Furosemide (Lasix -) 40 mg PO DAILY [facility] Last Admin: 09/12/19 09:03 Dose: 40 mg Insulin Aspart (Novolog Vial Sliding Scale -) 1 vial SQ [facility]; Protocol Last Admin: 09/13/19 06:44 Dose: 2 unit Insulin Detemir (Levemir Vial) 12 units SQ [facility] Last Admin: 09/12/19 21:33 Dose: 12 units Sacubitril/Valsartan (Entresto 49 Mg-51 Mg Tablet) 1 tab PO BID [facility] Last Admin: 09/12/19 21:37 Dose: 1 tab Spironolactone (Aldactone -) 25 mg PO DAILY [facility] Last Admin: 09/12/19 09:03 Dose: 25 mg Review of Systems - Review of Systems Constitutional: denies: Chills, Fever Cardiovascular: As noted above Respiratory: denies: Cough or Sputum Production Gastrointestinal: denies: Nausea, Vomiting, Diarrhea, Constipation or Abdominal Pain Neurological: denies: Headaches Vital Signs: Last Vital Signs Temp Pulse Resp BP Pulse Ox 97.9 F 80 18 107/58 L 99 09/13/19 06:00 09/13/19 06:00 09/13/19 06:00 09/13/19 06:00 09/12/19 21:00 Intake & Output 09/10/19 09/11/19 09/12/19 09/13/19 23:59 23:59 23:59 23:59 Intake Total 915 900 870 100 Balance 915 900 870 100 Weight 149 lb 9.6 oz 147 lb 6.4 oz 150 lb 2 oz Neck: Supple Negative JVD No Bruit Respiratory: Clear bilaterally Cardiovascular: S1 S2 Regular Rate and Rhythm Gastrointestinal: Soft Benign Normal Bowel Sounds Ext: Negative Edema Labs: CBC, BMP 09/12/19 06:40 09/12/19 13:48 Hepatic Panel Total Bilirubin 0.3 mg/dL (0.2-1) 09/12/19 06:40 AST 45 U/L (15-37) H 09/12/19 06:40 ALT 98 U/L (13-61) H 09/12/19 06:40 Alkaline Phosphatase 153 U/L (45-117) H 09/12/19 06:40 Albumin 3.0 g/dl (3.4-5.0) L 09/12/19 06:40 INR, PTT INR 1.11 (0.83-1.09) H 09/07/19 13:25 Assessment/Plan ASSESSMENT: 1. 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 Hypertensive heart disease 3. DM 4. Pre-renal azotemia 5. History of breast carcinoma post lumpectomy/chemotherapy PLAN: 1. Continue Coreg 2. Continue Entresto 3. Continue Aldactone 4. Continue Lasix 5. Continue ASA 6. As outlined in the prior note; patient can be D/C home form the cardiovascular point of view and F/U with cardiology (Dr. Edward Malik) for further intervention as note above- prophylactic ICD implant and eventual evaluation by heart failure/transplant team Caitlin Paulson M.D.
--- NOTE | 2019-09-13 07:40 | DS ---
Physical Exam: SUBJECTIVE: Patient seen and examined Patient is a 59 year old female with past medical history of HFrEF, HTN, NIDDM, breast cancer (diagnosed in 2010) s/p lumpectomy with chemo and radiation in Aug 2011, who presented to the ED due to worsening shortness of breath for 2 days. EF was noted to be significantly reduced. Started on diuretics and plan for ICD placement as outpatient. Life Vest in place OBJECTIVE: Vital Signs Period Temp Pulse Resp BP Sys/Quesada Pulse Ox Last 24 Hr 97.4 F-98.6 F 80-90 18-18 91-124/50-72 99-99 PHYSICAL EXAM Constitutional: Yes: Well Nourished, No Distress, Calm Eyes: Yes: WNL, Conjunctiva Clear HENT: Yes: WNL, Atraumatic, Normocephalic Neck: Yes: WNL, Supple, Trachea Midline Cardiovascular: Yes: WNL, Regular Rate and Rhythm. Life vest in place Respiratory: Yes: Regular, CTA Bilaterally Gastrointestinal: Yes: WNL, Normal Bowel Sounds Genitourinary: Yes: WNL Breast(s): Yes: WNL Musculoskeletal: Yes: WNL Extremities: Yes: WNL Edema: No Peripheral Pulses WNL: Yes Peripheral Pulses: Left Radial: 2+, Right Radial: 2+, Left Doralis Pedis: 2+, Right Dorsalis Pedis: 2+, Left Femoral: 2+, Right Femoral: 2+ Integumentary: Yes: WNL Neurological: Yes: WNL, Alert, Oriented ...Motor Strength: WNL Psychiatric: Yes: WNL LABS Laboratory Results - last 24 hr 09/12/19 09/12/19 09/12/19 06:40 06:40 11:13 Neutrophils % (Manual) 75.3 Band Neutrophils % 2.3 Lymphocytes % (Manual) 9.0 Monocytes % (Manual) 3 L Eosinophils % (Manual) 0.0 Basophils % (Manual) 0.0 Myelocytes % (Man) 2 Promyelocytes % (Man) 1 Blast Cells % (Manual) 0 Metamyelocytes 7 H Hypochromia 0 Platelet Estimate Normal Polychromasia 0 Poikilocytosis 0 Anisocytosis 0 Microcytosis 0 Macrocytosis 0 Sodium 139 Potassium 3.6 Chloride 104 Carbon Dioxide 27 Anion Gap 8 BUN 21.4 H Creatinine 1.3 Est GFR (CKD-EPI)AfAm 52.00 Est GFR (CKD-EPI)NonAf 44.87 POC Glucometer 256 Random Glucose 392 H Calcium 8.5 Magnesium 2.1 Total Bilirubin 0.3 AST 45 H ALT 98 H Alkaline Phosphatase 153 H Total Protein 7.2 Albumin 3.0 L 09/12/19 09/12/19 09/12/19 13:48 16:14 21:27 Neutrophils % (Manual) Band Neutrophils % Lymphocytes % (Manual) Monocytes % (Manual) Eosinophils % (Manual) Basophils % (Manual) Myelocytes % (Man) Promyelocytes % (Man) Blast Cells % (Manual) Metamyelocytes Hypochromia Platelet Estimate Polychromasia Poikilocytosis Anisocytosis Microcytosis Macrocytosis Sodium 132 L Potassium 4.1 Chloride 101 Carbon Dioxide 25 Anion Gap 7 L BUN 25.1 H Creatinine 1.0 Est GFR (CKD-EPI)AfAm 71.41 Est GFR (CKD-EPI)NonAf 61.62 POC Glucometer 284 268 Random Glucose 332 H Calcium 8.9 Magnesium Total Bilirubin AST ALT Alkaline Phosphatase Total Protein Albumin 09/13/19 05:59 Neutrophils % (Manual) Band Neutrophils % Lymphocytes % (Manual) Monocytes % (Manual) Eosinophils % (Manual) Basophils % (Manual) Myelocytes % (Man) Promyelocytes % (Man) Blast Cells % (Manual) Metamyelocytes Hypochromia Platelet Estimate Polychromasia Poikilocytosis Anisocytosis Microcytosis Macrocytosis Sodium Potassium Chloride Carbon Dioxide Anion Gap BUN Creatinine Est GFR (CKD-EPI)AfAm Est GFR (CKD-EPI)NonAf POC Glucometer 159 Random Glucose Calcium Magnesium Total Bilirubin AST ALT Alkaline Phosphatase Total Protein Albumin HOSPITAL COURSE: Date of Admission:09/07/19 Date of Discharge: 09/13/19 Problem List - Problems (1) Diabetes mellitus Assessment/Plan: HgbA1c 13.7 BGM better controlled on levemir BGM AC/HS with novolog sliding scale c/w Levemir and sliding scale on discharge diabetic diet Code(s): E11.9 - TYPE 2 DIABETES MELLITUS WITHOUT COMPLICATIONS (2) Breast cancer Assessment/Plan: s/p lumpectomy with chemo and RT Code(s): C50.919 - MALIGNANT NEOPLASM OF UNSP SITE OF UNSPECIFIED FEMALE BREAST (3) SOB (shortness of breath) Assessment/Plan: supplemental O2 to maintain SPO2 >90% Decreased EF c/w lasix 40mg c/w aldactone Code(s): R06.02 - SHORTNESS OF BREATH (4) Prophylactic measure Assessment/Plan: FEN Fluids: adequate PO intake Electrolytes: stable Nutrition: low Na, diabetic diet DVT asa on discharge Dispo dischage to home with service VNS in place Code(s): Z29.9 - ENCOUNTER FOR PROPHYLACTIC MEASURES, UNSPECIFIED (5) HTN (hypertension) Assessment/Plan: c/w entresto Code(s): I10 - ESSENTIAL (PRIMARY) HYPERTENSION (6) CHF exacerbation Assessment/Plan: acute on chronic HF reduced EF 30%, med non-complaince c/w lasix, aldactone zoll life vest fitted Code(s): I50.9 - HEART FAILURE, UNSPECIFIED (7) Hypomagnesemia Assessment/Plan: resolved Code(s): E83.42 - HYPOMAGNESEMIA Medcially stable for discharge to home with services Minutes to complete discharge: 45 Discharge Summary Problems reviewed: Yes Reason For Visit: CHF DYSPNEA Current Active Problems Breast cancer (Acute) Chest pressure (Acute) KEYS (dyspnea on exertion) (Acute) Diabetes mellitus (Acute) Hypomagnesemia (Acute) Prophylactic measure (Acute) SOB (shortness of breath) (Acute) Systolic CHF with reduced left ventricular function, NYHA class 2 (Acute) Hospital Course: Problem List - Problems (1) Diabetes mellitus Assessment/Plan: HgbA1c 13.7 BGM better controlled on levemir BGM AC/HS with novolog sliding scale c/w Levemir and sliding scale on discharge diabetic diet Code(s): E11.9 - TYPE 2 DIABETES MELLITUS WITHOUT COMPLICATIONS (2) Breast cancer Assessment/Plan: s/p lumpectomy with chemo and RT Code(s): C50.919 - MALIGNANT NEOPLASM OF UNSP SITE OF UNSPECIFIED FEMALE BREAST (3) SOB (shortness of breath) Assessment/Plan: supplemental O2 to maintain SPO2 >90% Decreased EF c/w lasix 40mg c/w aldactone Code(s): R06.02 - SHORTNESS OF BREATH (4) Prophylactic measure Assessment/Plan: FEN Fluids: adequate PO intake Electrolytes: stable Nutrition: low Na, diabetic diet DVT asa on discharge Dispo dischage to home with service VNS in place Code(s): Z29.9 - ENCOUNTER FOR PROPHYLACTIC MEASURES, UNSPECIFIED (5) HTN (hypertension) Assessment/Plan: c/w entresto Code(s): I10 - ESSENTIAL (PRIMARY) HYPERTENSION (6) CHF exacerbation Assessment/Plan: acute on chronic HF reduced EF 30%, med non-complaince c/w lasix, aldactone zoll life vest fitted Code(s): I50.9 - HEART FAILURE, UNSPECIFIED (7) Hypomagnesemia Assessment/Plan: resolved Code(s): E83.42 - HYPOMAGNESEMIA Medcially stable for discharge to home with services Condition: Improved - Instructions Diet, Activity, Other Instructions: DISCHARGE YOUR VISIT You came to the hospital because you were short of breath and were found to be in worsening heart failu. You were seen by a kiln pusher and given diuretics. An Echocardiogradm was done that showed the pumping ability of you heart to be greatly reduced and you will need to have an internal defibrillator placed (ICD ) in the near future to help your heart pump. Until the ICD is placed you should wear the Zoll Life Vest all the time except for showering. Take the lasix and aldactone (water pill) every day. Do not take the Your blood sugar was also very high. You were started on a long acting insulin called LEVEMIR. Take 12u every night. Also check your blood sugars before meals and at bedtime. DO NOT take the diabetes pills (glucophage, januvia, amaryl) until you see your primary provider Your blood surgars should be well controlled with just the long acting insulin but if it is not use the NOVOLOG insulin (short acting) as per this scale: Novolog Insulin Sliding Scale Check Blood sugar BEFORE all meals and BEFORE bed If BS is: <60 drink some juice and recheck in an hour 100-150 no insulin 151-200 4u of insulin 201-250 6u of insulin 251-300 8u of insulin 301-350 10u of insulin 351-400 12u of insulin >401 call provider MEDICATIONS Please continue to take your home medications as prescribed. There was some changes CONTINUE aspirin (you can bur over counter if cheaper than co-pay) coreg 25mg twice a day lasix 40mg daily aldactone 25mg daily NEW entresto twice a day levemir 12 u at bedside novolog as per sliding scale STOP all diabetes pills Losartan DIET Continue your home diet, low fat low cholesterol ADDITIONAL CARE Please make an appointment to see your primary care provider, Dr Iraheta 1 week from today. Call Dr Mcclendon (kiln pusher) today for an appointment. ADDITIONAL INFORMATION Please call 911 or come directly to the emergency department if you experience unusual headache, vision change, shortness of breath, chest pain, numbness, tingling, loss of alertness/awareness, loss of function, unusual bleeding or any alarming symptoms. Thank you for allowing me to care for you. Dariel Townsend, [facility], [facility] [phone] Referrals: Eugene Mcclendon MD [Staff Physician] - 1 Week (call for appointment) Eric Iraheta MD [Primary Care Provider] - - Home Medications Comprehensive Discharge Medication List: Ambulatory Orders Aspirin [ASA -] 81 mg PO DAILY 09/07/19 Glimepiride [Amaryl -] 4 mg PO DAILY@0700 09/07/19 Metformin HCl [Glucophage] 500 mg PO BID 09/07/19 Sitagliptin Phosphate [Januvia] 100 mg PO DAILY 09/07/19 Carvedilol [Coreg -] 25 mg PO BID #60 tablet 09/10/19 Furosemide [Lasix -] 40 mg PO BID@0600,1400 #60 tablet 09/10/19 Insulin Sliding Scale [Novolog Vial Sliding Scale -] 1 vial SQ ACHS #1 vial Isopropyl Alcohol [Alcoh-Wipe] 1 each ASDIR #1 box 09/10/19 Miscellaneous Medical Supply [Glucometer Device] 1 each .ROUTE ASDIR #1 kit [employer] [Glucometer Test Strips #100] 1 each .ROUTE ASDIR # 1 box 09/10/19 Spironolactone [Aldactone -] 25 mg PO DAILY #30 tablet 09/10/19 Syring-Needl,Disp,Insul,0.3 ml [Insulin Syringe] 1 each ASDIR #100 disp.syrin 09/10/19 Furosemide [Lasix -] 40 mg PO DAILY #30 tablet 09/12/19 Insulin Detemir [Levemir Flextouch] 12 unit SQ HS #4 insuln.pen 09/12/19 Sacubitril/Valsartan [Entresto 49 mg-51 mg Tablet] 1 tab PO BID #60 tablet 09/12 Prescription Drug Monitoring Program (I-STOP) results: I-STOP not reviewed Problem List - Problems (1) Diabetes mellitus Code(s): E11.9 - TYPE 2 DIABETES MELLITUS WITHOUT COMPLICATIONS (2) Breast cancer Code(s): C50.919 - MALIGNANT NEOPLASM OF UNSP SITE OF UNSPECIFIED FEMALE BREAST (3) SOB (shortness of breath) Code(s): R06.02 - SHORTNESS OF BREATH (4) Prophylactic measure Code(s): Z29.9 - ENCOUNTER FOR PROPHYLACTIC MEASURES, UNSPECIFIED (5) HTN (hypertension) Code(s): I10 - ESSENTIAL (PRIMARY) HYPERTENSION (6) CHF exacerbation Code(s): I50.9 - HEART FAILURE, UNSPECIFIED (7) Hypomagnesemia Code(s): E83.42 - HYPOMAGNESEMIA This patient is new to me today: No Emergency Visit: Yes ED Registration Date: 09/07/19 Care time: The patient presented to the Emergency Department on the above date and was hospitalized for further evaluation of their emergent condition. Critical Care patient: No - Discharge Referral Referred to [facility] Med [facility] No
[2019-09-13 08:30] LABS: BASO % 0.7 % (0-2.0); EOS % 1.5 % (0-4.5); HEMATOCRIT 37.5 % (32.4-45.2); HEMOGLOBIN 12.8 GM/dL (10.7-15.3); LYMPH % 37.3 % (8-40); MCH 28.7 pg (25.7-33.7); MCHC 34.1 g/dl (32.0-36.0); MEAN CELL VOLUME 84.2 fl (80-96); MEAN PLT VOLUME 7.7 fl (7.5-11.1); MONO % 11.8 % (3.8-10.2); NEUT % 48.7 % (42.8-82.8); PLATELET COUNT 306 K/MM3 (134-434); RBC 4.46 M/mm3 (3.60-5.2); RDW 13.8 % (11.6-15.6); WHITE BLOOD COUNT 4.3 K/mm3 (4.0-10.0)
[2019-09-13 08:59] LABS: ALBUMIN 3.3 g/dl (3.4-5.0); BILIRUBIN,TOTAL 0.6 mg/dL (0.2-1); BLOOD UREA NITROGEN 25.4 mg/dL (7-18); CREATININE 0.9 mg/dL (0.55-1.3); MAGNESIUM 2.2 mg/dL (1.8-2.4); POTASSIUM 4.3 mmol/L (3.5-5.1); TOT PROT 7.8 g/dl (6.4-8.2)
[2019-09-13] MEDS: SPIRONOLACTONE 25 MG TABLET (FP) PO SCH (10:01)
[2019-09-13] MEDS: SACUBITRIL/VALSARTAN 49 MG-51 MG TABLET PO SCH (10:01)
[2019-09-13] MEDS: CARVEDILOL 25 MG TABLET (FP) PO SCH (10:01)
[2019-09-13] MEDS: FUROSEMIDE 40 MG TABLET (FP) PO SCH (10:01)
[2019-09-13] MEDS: ENOXAPARIN NA (PORCINE) 40 MG/0.4 ML DISP.SYRIN SQ SCH (10:02)
[2019-09-13] MEDS: ASPIRIN 81 MG CHEWABLE TABLETS PO SCH (10:02)
[2019-09-13 14:21] VITALS: BP 125/91; PULSE 109; TEMP 97.5
== END 2019-09-13 18:00 | disposition home health service (06) | DRG 293 ==
LOC: JER 11:36 → JERBED 17:18 → J4S 09-10 15:07
PROVIDERS: ATTEND Nurse Practitioner Acute Care
DX: I11.0 Hypertensive heart disease with heart failure (principal); I50.23 Acute on chronic systolic (congestive) heart failure; E83.42 Hypomagnesemia; I42.0 Dilated cardiomyopathy; R42 Dizziness and giddiness; E11.65 Type 2 diabetes mellitus with hyperglycemia; C50.919 Malignant neoplasm of unspecified site of unspecified female breast; R00.0 Tachycardia, unspecified
CPT/HCPCS: 36415; 71045-TC-FY; 71275-TC; 80048; 80053; 80061; 82550; 82962; 83036; 83721; 83735; 83880; 84100; 84443; 84484; 85025; 85379; 85610; 85730; 93005; 93010; 93306-TC; 99285-25